=== PATIENT | female | born 1970 | race Caucasian/White ===

== ENCOUNTER → 2020-12-17 16:40 | Outpatient (CLI) | payer OTHER, SELFPAY ==
[2020-12-16 11:11] VITALS: BMI 29.8
--- NOTE | 2020-12-17 16:42 | BI_ITS ---
MAMMOGRAPHY - BILATERAL SCREENING REASON FOR EXAM: Female, 50 years old. Routine annual screening examination. PERTINENT HISTORY: Non-contributory. TECHNIQUE: Digital bilateral breast letitia (3D mammographic acquisition) in the CC and MLO projections. 2-D mediolateral oblique (MLO) and craniocaudad (CC) views of both breasts were obtained. CAD: Full Field Digital Mammography with Computer Added Detection was performed. COMPARISON: Comparison is made with prior outside examination dated 01/24/2018. FINDINGS: Breast Composition: There are scattered areas of fibroglandular density. There are no dominant masses or suspicious calcifications. No other significant abnormalities are identified. There has been no significant change since the prior study. BI/SCRN MAMM (CAD)W/LETITIA BILAT IMPRESSION: Stable bilateral screening mammogram. Yearly follow-up mammogram recommended. (A) ASSESSMENT CATEGORY: BIRADS Category 2: Benign. A letter regarding these results will be sent to the patient by the facility within 30 days. Approximately 10% of breast cancers are not detected by mammography. A normal mammogram should not delay biopsy of a clinically suspicious abnormality. [id number] Electronically Signed: Skyler Dunn MD at 13:04 EDT , Service support ,
== END ==
PROVIDERS: Referring Provider Student in an Organized Health Care Education/Training Program; Visit Provider Student in an Organized Health Care Education/Training Program
DX: Z12.31 Encounter for screening mammogram for malignant neoplasm of breast (principal)
CPT/HCPCS: 77063; 77067

== ENCOUNTER → 2021-03-13 11:25 | Outpatient (CLI) | payer OTHER, SELFPAY ==
[2021-03-13 12:48] LABS: T4 Free Direct 0.91 ng/dL (0.76-1.46); Thyroid Stim Hormone (TSH) 0.77 uIU/mL (0.358-3.74)
== END ==
PROVIDERS: Referring Provider Internal Medicine Endocrinology, Diabetes & Metabolism; Visit Provider Internal Medicine Endocrinology, Diabetes & Metabolism
DX: E05.00 Thyrotoxicosis with diffuse goiter without thyrotoxic crisis or storm (principal)
CPT/HCPCS: 36415; 84439; 84443

== ENCOUNTER → 2021-09-07 12:21 | Outpatient (CLI) | payer OTHER, SELFPAY ==
[2021-09-07 14:24] LABS: T4 Free Direct 1.48 ng/dL (0.76-1.46); Thyroid Stim Hormone (TSH) 0.03 uIU/mL (0.358-3.74)
== END ==
PROVIDERS: Visit Provider Internal Medicine Endocrinology, Diabetes & Metabolism
DX: E05.90 Thyrotoxicosis, unspecified without thyrotoxic crisis or storm (principal)
CPT/HCPCS: 36415; 84439; 84443

== ENCOUNTER 2021-10-30 10:32 | Outpatient (CLI) | payer OTHER, SELFPAY ==
[2021-10-30 12:45] LABS: T4 Free Direct 0.95 ng/dL (0.76-1.46); Thyroid Stim Hormone (TSH) 0.23 uIU/mL (0.358-3.74)
== END 2021-10-30 23:59 | disposition short-term general hospital (02) ==
LOC: LAB 10:34
PROVIDERS: PCP Family Medicine; Visit Provider Internal Medicine Endocrinology, Diabetes & Metabolism
DX: E05.90 Thyrotoxicosis, unspecified without thyrotoxic crisis or storm (principal)
CPT/HCPCS: 36415; 84439; 84443

== ENCOUNTER 2021-12-25 10:13 | Outpatient (CLI) | payer OTHER, SELFPAY ==
[2021-12-25 11:45] LABS: T4 Free Direct 0.92 ng/dL (0.76-1.46); Thyroid Stim Hormone (TSH) 0.54 uIU/mL (0.358-3.74)
== END 2021-12-25 23:59 | disposition home or self-care (01) ==
PROVIDERS: PCP Family Medicine; Referring Provider Internal Medicine Endocrinology, Diabetes & Metabolism; Visit Provider Internal Medicine Endocrinology, Diabetes & Metabolism
DX: E05.90 Thyrotoxicosis, unspecified without thyrotoxic crisis or storm (principal)
CPT/HCPCS: 36415; 84439; 84443

== ENCOUNTER → 2022-11-25 | Outpatient (CLI) | payer OTHER, SELFPAY ==
[2022-11-25 09:43] LABS: Hematocrit 39.5 % (37-47); Mean Corp Hgb Conc 32.9 g/dL (32-36); Mean Corpuscular Hgb 29.2 pg (27.0-32.0); Mean Corpuscular Volume 88.8 fL (81-99); Mean Platelet Vol. 8.9 fl (6.2-12.0); Platelet Count 230 K/mm3 (150-450); RBC Distribution Width SD 38.5 fl (35.1-43.9); Red Blood Count 4.45 M/mm3 (4.2-5.4); White Blood Count 3.6 K/mm3 (4.4-11.0)
[2022-11-25 10:16] LABS: AST(SGOT) 17 U/L (15-37); Alanine Aminotransfer ALT/SGPT 29 U/L (13-56); Albumin, Serum 3.8 g/dL (3.2-5.0); Alkaline Phosphatase 89 U/L (45-117); Anion Gap 5 (5-15); BUN 12 mg/dL (7-18); BUN/Creat Ratio 11.9 RATIO (10-20); Calcium,Total 9.4 mg/dL (8.5-10.1); Chloride 110 mmol/L (98-107); Creatinine, Serum 1.01 mg/dL (0.55-1.02); EST Glomerular Filtration Rate 61 mL/min (>60); Est Glom Filt Rate - Afr Amer 74 mL/min (>60); Free T3 3.2 pg/mL (2.18-3.98); Globulin 3.8 g/dL (2.2-4.2); Glucose 113 mg/dL (74-106); Protein, Total 7.6 g/dL (6.4-8.2); Sodium Level 143 mmol/L (136-145); T4 Free Direct 1.02 ng/dL (0.76-1.46); Thyroid Stim Hormone (TSH) 0.04 uIU/mL (0.358-3.74)
== END | disposition home or self-care (01) ==
LOC: LAB 09:17
PROVIDERS: PCP Family Medicine; Visit Provider Nurse Practitioner Adult Health
DX: E05.00 Thyrotoxicosis with diffuse goiter without thyrotoxic crisis or storm (principal)
CPT/HCPCS: 36415; 80053; 84439; 84443; 84481; 85027

== ENCOUNTER → 2023-01-09 | Outpatient (CLI) | payer OTHER, SELFPAY ==
--- NOTE | 2023-01-09 16:00 | BI_ITS ---
MAMMOGRAPHY - BILATERAL SCREENING REASON FOR EXAM: Female, 52 years old. Routine annual screening examination. PERTINENT HISTORY: Non-contributory. TECHNIQUE: Digital bilateral breast letitia (3D mammographic acquisition) in the CC and MLO projections. 2-D mediolateral oblique (MLO) and craniocaudad (CC) views of both breasts were obtained. CAD: Full Field Digital Mammography with Computer Added Detection was performed. COMPARISON: Comparison is made with prior study of December 17, 2020. FINDINGS: Breast Composition: There are scattered areas of fibroglandular density. There are no dominant masses or suspicious calcifications. No other significant abnormalities are identified. There has been no significant change since the prior study. BI/SCRN MAMM (CAD)W/LETITIA BILAT IMPRESSION: Stable bilateral screening mammogram. Yearly follow-up mammogram recommended. (A) ASSESSMENT CATEGORY: BIRADS Category 1: Negative. A letter regarding these results will be sent to the patient by the facility within 30 days. Approximately 10% of breast cancers are not detected by mammography. A normal mammogram should not delay biopsy of a clinically suspicious abnormality. [id number] Electronically Signed: Skyler Dunn MD at 8:20 EDT ,
[2023-01-09 17:07] LABS: Hematocrit 40.2 % (37-47); Hemoglobin 13.4 g/dL (12.0-15.0); Mean Corp Hgb Conc 33.3 g/dL (32-36); Mean Corpuscular Hgb 29.2 pg (27.0-32.0); Mean Corpuscular Volume 87.6 fL (81-99); Mean Platelet Vol. 9.6 fl (6.2-12.0); Platelet Count 249 K/mm3 (150-450); RBC Distribution Width SD 38.5 fl (35.1-43.9); Red Blood Count 4.59 M/mm3 (4.2-5.4); White Blood Count 5.9 K/mm3 (4.4-11.0)
[2023-01-09 17:56] LABS: T4 Free Direct 0.98 ng/dL (0.76-1.46)
== END | disposition home or self-care (01) ==
PROVIDERS: Nurse Practitioner Adult Health; PCP Family Medicine; Referring Provider Student in an Organized Health Care Education/Training Program; Visit Provider Student in an Organized Health Care Education/Training Program
DX: Z12.31 Encounter for screening mammogram for malignant neoplasm of breast (principal); E05.00 Thyrotoxicosis with diffuse goiter without thyrotoxic crisis or storm
CPT/HCPCS: 36415; 77063; 77067; 84439; 84443; 84481; 85027

== ENCOUNTER → 2023-06-08 | Outpatient (CLI) | payer OTHER, SELFPAY ==
[2023-06-08 17:15] LABS: Hematocrit 41.4 % (37-47); Hemoglobin 13.7 g/dL (12.0-15.0); Mean Corp Hgb Conc 33.1 g/dL (32-36); Mean Corpuscular Hgb 29.8 pg (27.0-32.0); Mean Platelet Vol. 9.2 fl (6.2-12.0); Platelet Count 247 K/mm3 (150-450); RBC Distribution Width CV 11.8 % (11.6-14.6); RBC Distribution Width SD 37.9 fl (35.1-43.9); White Blood Count 4.7 K/mm3 (4.4-11.0)
[2023-06-08 17:42] LABS: AST(SGOT) 15 U/L (15-37); Alanine Aminotransfer ALT/SGPT 35 U/L (13-56); Free T3 2.9 pg/mL (2.18-3.98); T4 Free Direct 0.89 ng/dL (0.76-1.46); Thyroid Stim Hormone (TSH) 2.22 uIU/mL (0.358-3.74)
== END | disposition home or self-care (01) ==
LOC: LAB 16:58
PROVIDERS: PCP Family Medicine; Referring Provider Nurse Practitioner Adult Health; Visit Provider Nurse Practitioner Adult Health
DX: E05.00 Thyrotoxicosis with diffuse goiter without thyrotoxic crisis or storm (principal)
CPT/HCPCS: 36415; 84439; 84443; 84450; 84460; 84481; 85027

== ENCOUNTER 2023-07-13 12:48 | Outpatient (CLI) | payer OTHER, SELFPAY ==
--- NOTE | 2023-07-13 12:54 | CT_ITS ---
STUDY: CT CHEST WITHOUT CONTRAST REASON FOR EXAM: Female, 52 years old. Family history of heart disease. OVER READ only RADIATION DOSAGE (If Supplied By Facility): CTDIvol = ( 12.19 ) mGy, DLP = ( 243.79 ) mGycm TECHNIQUE: Transaxial imaging was performed without the administration of intravenous contrast material. Individualized dose optimization techniques were used for this CT. COMPARISON: No relevant priors. FINDINGS: CHEST The lungs are normal. There is no demonstrated pleural abnormality. Normal heart and pericardium. Normal mediastinum. Normal hilar regions. Normal unenhanced pulmonary arteries. Normal aorta arch and descending thoracic aorta. Normal osseous structures. There is no demonstrated abnormality of the visualized upper abdomen. CT/Limited Chest CT Cardiac Only IMPRESSION: Normal unenhanced CT chest T abdomen examination. Electronically Signed: Skyler Dunn MD at 13:50 EDT ,
--- NOTE | 2023-07-13 17:51 | CA.SCORE ---
Calcium Scoring Date of Study:: 07/13/23 Indications Indications: Family history Coronary Calcium Scoring: High-resolution Computed Tomographic imaging of the chest was performed on [07/13/23 ], with particular attention paid to the coronary arteries. Images from the examination were analyzed for the presence and extent of coronary artery calcification , using coronary calcium quantification software. The patient tolerated the procedure well and there were no complications. The results of the coronary calcification analysis are provided below. Findings Coronary Artery Left Main (LM): 0 Left Anterior Descending (LAD): 0 Left Circumflex (LCX): 0 Right Coronary Artery (RCA): 0 Total Agatston Score: 0 Percentile Rankin% Calcium Scoring Interpretation: Different methods to categorize the overall amount of coronary plaque. Overall amount CAC SIS Visual of coronary plaque P1 Mild -100 <2 1-2 vessels with mild amount of plaque P2 Moderate 101-300 3-4 1-2 vessels with moderate amount, 3 vessels with mild amount of plaque P3 Severe 301-999 5-7 3 vessels with moderate amount, 1 vessel with severe amount of plaque P4 Extensive >1000 >8 2-3 vessels with severe amount of plaque Conclusion: No significant atherosclerotic plaque disease noted.
== END 2023-07-13 23:59 | disposition home or self-care (01) ==
LOC: CT 12:52
PROVIDERS: PCP Family Medicine; Referring Provider Family Medicine; Visit Provider Family Medicine
DX: E05.00 Thyrotoxicosis with diffuse goiter without thyrotoxic crisis or storm (principal); Z82.49 Family history of ischemic heart disease and other diseases of the circulatory system
CPT/HCPCS: 75571; 76380

== ENCOUNTER → 2023-07-15 | Outpatient (CLI) | payer OTHER, SELFPAY ==
[2023-07-15 11:43] LABS: T4 Free Direct 0.74 ng/dL (0.76-1.46); Thyroid Stim Hormone (TSH) 3.66 uIU/mL (0.358-3.74)
== END | disposition home or self-care (01) ==
LOC: LAB 10:15
PROVIDERS: PCP Family Medicine; Visit Provider Internal Medicine Endocrinology, Diabetes & Metabolism
DX: E05.90 Thyrotoxicosis, unspecified without thyrotoxic crisis or storm (principal)
CPT/HCPCS: 36415; 84439; 84443

== ENCOUNTER → 2023-10-14 | Outpatient (CLI) | payer OTHER, SELFPAY ==
--- OUTSIDE RECORDS SUMMARY | 2023-10-14 10:54 | XMS RPT_ITS | CCD ---
Author Name Unknown Address [address] [place] [address] Organization [facility] Care Team Providers Care Management Rep Name Role Phone Unavailable Primary Care Provider LEONIDAS Brooks Attending LISSETH Gustafson Attending Unavailable Medications Completed/Discontinued Medications Medication Drug Class(es) Dates Sig (Normalized) Sig (Original) methIMAzole 5 mg oral tablet (10 sources) Thyroid Hormone Synthesis Inhibitor Start: 12-01-2022 take 1.5 tablets by mouth once daily methIMAzole (TAPAZOLE) 5 mg tablet Indications: Graves disease Take 1.5 tablets by mouth once daily. 135 tablet 1 12/01/2022 Active Problems Active Problems Problem Classification Problem Date Documented Da te Episodic/Chronic Thyroid disorders (11 sources) Graves' disease; Translations: [Thyrotoxicosis with diffuse goiter without thyrotoxic crisis or storm] Onset: 02-21-2016 09-07-2021 Chronic Past or Other Problems Problem Classification Problem Date Documented Da te Episodic/Chronic Other circulatory disease (9 sources) Elevated blood-pressure reading without diagnosis of hypertension; Translations: [Elevated blood-pressure reading, without diagnosis of hypertension] Onset: 02-17-2019 02-17-2019 Episodic Results Test Name Value Interpretation Reference Range Facil ity Encounters Encounter Date Encounter Type Care Provider Facility Start: 10-04-2023 End: 10-04-2023 ambulatory LEONIDAS STARK Facility:[facility] Start: 07-28-2023 ambulatory Leonidas han MD Work Phone: Endocrinology Procedures Date Procedure Procedure Detail Performing Clinician Start: 06-08-2023 ALT/SGPT BLOOD (EU,FV,HL,CARRIE,MM,SP) [facility] Provider Start: 06-08-2023 AST/SGOT BLOOD (EU,FV,HL,CARRIE,MM,SP) [facility] Provider Start: 06-08-2023 THYROID PANEL - EXTERNAL [facility] Provider Start: 01-09-2023 T4/THYROXINE BLOOD [facility] Provider Start: 01-09-2023 Thyrotropin [Units/v olume] in Serum or Plasma [facility] Provider Start: 01-24-2018 Mammography Lisseth trent ELECTRIC MOTOR REPAIRMAN.MARVIN Work Phone: Plan of Treatment Date Care Activity Detail Author Start: 11-25-2025 DIABETES SCREEN DIABETES SCREEN [facility] Start: 11-25-2025 Diabetes Screening Diabetes Screenin g [facility] Start: 06-09-2023 Covid-19 Vaccine () Covid-19 Vaccine () [facility] Start: 06-09-2023 Influenza vaccination C [facility] Start: 03-15-2023 End: 05-15-2023 Thyrotropin [Units/volume] in Serum or Plasma TSH BLD Lab Routine Graves disease Expected: 03/15/2023 (Approximate), Expires: 05/15/2023 [facility] Work Phone: Immunizations Immunization Date Immunization Notes Care Provider [facility] 08-21-2022 influenza virus vaccine, unspecified formulation Leonidas Stark MD Work Phone: [facility] 09-15-2021 influenza, injectabl e, quadrivalent, contains preservative Lisseth Duarte ELECTRIC MOTOR REPAIRMAN.FOOD SERVICE LEAD Work Phone: [facility] Payers Date Payer Category Payer Unknown [facility] [employer] [id number] 2022-Present [phone] [address] [place] [address] PPO [id number] 2022 Unknown [id number] Social History Date Type Detail Facility Start: 08-04-2011 Tobacco smoking stat us ARIS Never smoked tobacco [facility] Work Phone: Start: 08-04-2011 Tobacco use and exposure Smokeless tobacco non-user [facility] Work Phone: Start: 11-15-2022 Alcohol intake Current non-dr tile trimmer of alcohol (finding) [facility] Start: 1970 Sex Assigned At Not on file C [facility] Start: 11-15-2022 History of Social function [facility] Start: 11-15-2022 Tobacco use panel [facility] National Score (1-100), lower number is lower risk 53 [facility] Clinical Notes 11-16-2012 to 10-04-2023 Telephone Encounter - Leonidas Stark MD - 07/18/2023 11:05 AM EDTTelephone Encounter - Razia Blount MA - 07/17/2023 2:48 PM EDT Note Date & Type Note Facility 10-04-2023 Note HNO ID: [id number] Author: Leonidas Stark MD Service: ? Author Type: Physician Type: Progress Notes Filed: 10/04/2023 9:47 AM Note Text: Follow-up 53 year-old female with history of Graves disease which had recurred despite [id number] hypothyroidism. Also has had elevated blood pressure without diagnosis of hypertension in the past. Radioiodine treatment was in 2009. She had been euthyroid again in 2011 and 2012, then TSH became suppressed again despite lower and lower levothyroxine doses. Says is exercising, feeling well. Says BP checks have been fine. No periods. Restarted methimazole in 04/2020. Current Outpatient Medications on File Prior to Visit Medication Sig methIMAzole (TAPAZOLE) 5 mg tablet TAKE 1.5 TABLETS BY MOUTH EVERY DAY ALLERGIES No Known Allergies Review of systems: Patient notes no weight changes, fever, fatigue, weakness, change in balance or sensation, visual problems, hearing changes, dizziness, trouble swallowing, nasal difficulties, shortness of breath, chest pain, change in exertional tolerance, foot or leg problems, skin lesions, abdominal pain, diarrhea, constipation, urinary problems, incontinence, back pain, joint pains, anxiety, depression, insomnia, menstrual difficulties, breast lesions/pain/mass. Remainder of review of systems was unremarkable. BP 130/85 Pulse 78 Resp 16 Ht 169.1 cm (5' 6.58 ) Wt 82 kg (180 lb 12.4 oz) LMP 12/07/2018 (Within Weeks) SpO2 98% BMI 28.68 kg/m? General appearance: Well-appearing, overweight (BMI greater than 25) female, alert, in no acute distress, well-hydrated, well nourished. Weight down 2 pounds since 11/2022. BP near normal, pulse regular. Skin: Skin color, texture, turgor normal, no suspicious rashes or lesions Head: normocephalic, no masses, lesions, tenderness or abnormalities Eyes: Anicteric sclera. Pupils are equally round. Extraocular movements are intact. Ears: not examined Nose/Sinuses: Nares normal. No drainage or sinus tenderness. Oropharynx: Lips, mucosa, and tongue normal, teeth and gums not examined. Neck: Supple, no adenopathy; no palpable thyroid enlargement. Lungs: Breathing unlabored. Heart: RRR. No ectopy Abdomen: deferred Extremities: No deformities, edema, skin discoloration, clubbing or cyanosis. Good capillary refill. Musculoskeletal: Spine range of motion not tested. Muscular strength intact, No joint swelling, deformity, or tenderness Peripheral pulses: Normal Neuro: Gait normal. Sensation grossly intact. Latest Reference Range AND Units 07/15/23 00:00 Free T4 0.8 - 1.5 ng/dL 0.7 ! (E) TSH 0.358 - 3.74 IU/ml 3.66 (E) !: Data is abnormal (E): External lab result IMPRESSION: Graves disease - check for remission, stop methimazole. Check TFTs again in 7-10 days Elevated blood pressure without diagnosis of hypertension - check BP in the community, stressed goal BP less than 130/80 mm Hg. PLAN: Stop methimazole. Check BP in the community, stressed goal BP less than 130/80 mm Hg. Continue weight loss efforts Check TSH, free T4 at [facility] in 7-10 days - will call with results See me again in 12 months Leonidas Stark MD I spent a total of 30 minutes on the date of service which included preparing to see the patient, [id number] patient care, completing clinical documentation, performing a medically appropriate examination, counseling and educating the patient/family/caregiver and ordering medications, tests, or procedures. [facility] 07-18-2023 Miscellaneous Notes Formattin g of this note might be different from the original. Reviewed. OUTSIDE LAB REPORT on desk for review ENTRY DATE: 07/17/2023 Patient: Neris Morton [facility]#: [id number] Age: [age] year old documented in this encounter [facility] 07-17-2023 Note HNO ID: [id number] Author: Razia Blount MA Service: ? Author Type: Branch Operations Manager Type: Progress Notes Filed: 07/17/2023 2:48 PM Note Text: [facility] faxed labs tsh and t4- entered into [employer]- fwd to provider [facility] 06-14-2023 Miscellaneous Notes Formattin g of this note might be different from the original. Reviewed. MC message sent to patient Received outside lab results from [facility]. Placed in Lisseth Duarte's in box for review. In epic. documented in this encounter [facility] 06-05-2023 Miscellaneous Notes Formattin g of this note might be different from the original. Please review. documented in this encounter [facility] 03-28-2023 Miscellaneous Notes Formattin g of this note might be different from the original. Faxed last two office notes to Nabila Bahena [facility] documented in this encounter [facility] 01-13-2023 Miscellaneous Notes Formattin g of this note might be different from the original. Reviewed. MC message sent to patient. Thank you Received lab results from [facility]. Entered into [facility]. Placed on docs desk for review. Please advise, thanks. documented in this encounter [facility] 12-02-2022 Miscellaneous Notes Formattin g of this note might be different from the original. MAILED TO PATIENT CLOSED Labs reviewed. [employer] message sent to patient Please mail her new lab orders. Thank you Received outside lab results from [facility]. Placed in [employer] in box for review. documented in this encounter [facility] 11-15-2022 Note HNO ID: [id number] Author: Lisseth Duarte APRN.MARVIN Service: ? Author Type: Nurse Practitioner Type: Progress Notes Filed: 11/15/2022 1:57 PM Note Text: Reason for Consultation: Grave's Disease Referring Physician: SELF HISTORY OF PRESENT ILLNESS; Ms. Morton is a 52 year old female presenting for follow up regarding Grave's Disease . She was initially diagnosed with a thyroid disorder [address] Stark; [place] 08/27/2021 History of Graves disease and had GILLIAM 131 treatment in 2009 and became hypothyroid. However in [id number] she developed a suppressed TSH and need up stopping levothyroxine and is now back on methimazole as of 04/2020. Taking methimazole 5 mg daily Reports consistent use. Overall feeling well. Denies endocrine concern Severity, modifying factors, context and associated signs and symptoms are as follows: Thyroid pain: no Mass effect:denies Energy: stable and OK Sleep: Normal sleep pattern Temperature Intolerance: None CREDIT CARD CLERK: Menopause GI: denies loose stools, frequent stools or constipation Weight: remained stable Eyes: Dryness in left with lens replacement. Memory: Good Skin: denies changes PAST MEDICAL HISTORY Diagnosis Date Abnormal uterine bleeding 11/16/2012 Hypothyroidism Postablative hypothyroidism 07/26/201001/2016 - remains off levothyroxine (stopped 12/07/2015). PAST SURGICAL HISTORY Procedure Laterality Date LIG/TRNSXJ FLP TUBE ABDL/VAG APPR UNI/BI Tubal ligation TONSILLECTOMY PRIMARY/SECONDARY Tonsillectomy FAMILY HISTORY Problem Relation Age of Onset Diabetes Father Diabetes Paternal Aunt Heart Maternal Grandmother Prostate Cancer Maternal Grandfather Diabetes Son Social History Tobacco Use Smoking status: Never Smokeless tobacco: Never Substance Use Topics Alcohol use: No Drug use: No Current Outpatient Medications Medication Sig Dispense Refill methIMAzole (TAPAZOLE) 5 mg tablet Take 1 tablet by mouth once daily. 90 tablet 3 No current facility-administered medications for this visit. Allergies As of Date: 11/15/2022 (No Known Allergies) Fully Assessed 11/15/2022 REVIEW OF SYSTEMS: Answers submitted by the patient for this visit: Endocrine Review of Systems (Submitted on 11/14/2022) Fatigue: No Night Sweats: No Skin Color Changes: No Post-Nasal Drip: No Thyroid Pain (lower neck): No Trouble Swallowing: No Vision Disturbance: No Chest Pain: No Leg Swelling: No Blood Clots?: No Difficulty Breathing?: No Heartburn: No Nausea: No Vomiting?: No Diarrhea: No Constipation: No Abdominal Pain: No Bone Pain?: No Muscle Aches: No Muscle Weakness: No Joint Pain or Stiffness: No Headaches: No Dizziness: No Numbness?: No Urgency to Urinate?: No Increased Urination?: No Are your menstrual cycles regular?: No Are your menstrual cycles irregular?: No Have your menstrual cycles stopped?: Yes Flushing?: No Hot Flashes?: Yes Increased Thirst: No Change in Body Hair?: No Cold Intolerance: No Heat Intolerance?: No PHYSICAL EXAM: BP 141/79 Pulse 70 Ht 167.6 cm (5' 6 ) Wt 82.8 kg (182 lb 9.6 oz) LMP 12/07/2018 (Within Weeks) SpO2 99% BMI 29.47 kg/m2 Physical Exam Constitutional: Appearance: Normal appearance. Neck: Thyroid: No thyroid mass, thyromegaly or thyroid tenderness. Cardiovascular: Rate and Rhythm: Normal rate and regular rhythm. Pulmonary: Effort: Pulmonary effort is normal. Breath sounds: Normal breath sounds. Skin: General: Skin is warm and dry. Neurological: Mental Status: She is alert and oriented to person, place, and time. Psychiatric: Mood and Affect: Mood normal. Behavior: Behavior normal. DATA: No components found for: TOTALT4 Free T4 Date Value Ref Range Status 10/08/2020 1.0 0.9 - 1.7 ng/dL Final No components found for: TOTALT3 TSH Date Value Ref Range Status 12/25/2021 0.54 0.2 - 5.6 IU/ml Final Free T3 Date Value Ref Range Status 06/23/2020 3.3 2.3 - 4.1 pg/mL Final Microsomal Antibody Date Value Ref Range Status 09/07/2009 182.4 (H) <5.0 IU/mL Final RADIOLOGY: US Thyroid was not done. ASSESSMENT: Ms. Morton is a 52 year old female presenting for follow up regarding Grave's Disease . RECOMMENDATIONS: (E05.00) Graves disease Comment: She has been euthyroid on the present dose of methimazole. Plan: methIMAzole (TAPAZOLE) 5 mg tablet, TSH BLD, T4 FREE/FREE THYROX, T3 FREE BLD, COMP METABOLIC PANEL, CBC Labs this week or next--order printed--using [employer]. Advised to contact me within a week of having labs done if she does not hear from me. Follow up in 6 months. Medical Decision Making: Level: 3 - Low Lisseth Duarte, MSN, ELECTRIC MOTOR REPAIRMAN, CNP-C, CDE Endocrinology [facility] Medical Office [facility]/[address], [address] [place] [address] Fax: [facility] documented as of this encounter (statuses as of 11/29/2022) [facility] History of Past illness Narrative* Problem Noted Date Resolved Date Abnormal uterine bleeding 11/16/20122013 Bulky or enlarged uterus 11/16/2012 014 Unspecified symptom associated with female genit al organs 10/29/2008 11/16/2012 Dyspareunia 10/29/2008 09/27/2015 documented as of this encounter (statuses as of 12/02/2022) [facility] History of Past illness Narrative* Problem Noted Date Resolved Date Abnormal uterine bleeding 11/16/20122013 Bulky or enlarged uterus 11/16/2012 014 Unspecified symptom associated with female genit al organs 10/29/2008 11/16/2012 Dyspareunia 10/29/2008 09/27/2015 documented as of this encounter (statuses as of 01/14/2023) [facility] History of Past illness Narrative* Problem Noted Date Resolved Date Abnormal uterine bleeding 11/16/20122013 Bulky or enlarged uterus 11/16/2012 014 Unspecified symptom associated with female genit al organs 10/29/2008 11/16/2012 Dyspareunia 10/29/2008 09/27/2015 documented as of this encounter (statuses as of 03/29/2023) [facility] History of Past illness Narrative* Problem Noted Date Diagnosed Date Resolved Date Abnormal uterine bleeding 11/16/2012 Bulky or enlarged uterus 11/16/2012 Unspecified symptom associat ed with female genital organs 10/29/2008 11/16/2012 Dyspareunia 10/29/2008 09/27/2015 documented as of this encounter (statuses as of 06/05/2023) [facility] History of Past illness Narrative* Problem Noted Date Diagnosed Date Resolved Date Abnormal uterine bleeding 11/16/2012 Bulky or enlarged uterus 11/16/2012 Unspecified symptom associat ed with female genital organs 10/29/2008 11/16/2012 Dyspareunia 10/29/2008 09/27/2015 documented as of this encounter (statuses as of 06/14/2023) [facility] History of Past illness Narrative* Problem Noted Date Diagnosed Date Resolved Date Abnormal uterine bleeding 11/16/2012 Bulky or enlarged uterus 11/16/2012 Unspecified symptom associat ed with female genital organs 10/29/2008 11/16/2012 Dyspareunia 10/29/2008 09/27/2015 documented as of this encounter (statuses as of 06/15/2023) [facility] History of Past illness Narrative* Problem Noted Date Diagnosed Date Resolved Date Abnormal uterine bleeding 11/16/2012 Bulky or enlarged uterus 11/16/2012 Unspecified symptom associat ed with female genital organs 10/29/2008 11/16/2012 Dyspareunia 10/29/2008 09/27/2015 documented as of this encounter (statuses as of 07/18/2023) [facility] History of Past illness Narrative* Problem Noted Date Diagnosed Date Resolved Date Abnormal uterine bleeding 11/16/2012 Bulky or enlarged uterus 11/16/2012 Unspecified symptom associat ed with female genital organs 10/29/2008 11/16/2012 Dyspareunia 10/29/2008 09/27/2015 documented as of this encounter (statuses as of 07/29/2023) [facility] Diagnosis 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 [facility] this [facility] Diagnosis Graves disease- Primary Toxic diffuse goiter without mention of thyrotoxic crisis or storm documented in this encounter [facility] Summary Purpose Family History No Family History Records FoundNo Family History Records Found Advance Directives No Advanced Directives Records FoundNo Advanced Directives Records Found Additional Source Comments INFORMATION SOURCE (unrecogn ized section and content) DATE CREATED AUTHOR AUTHOR'S ORGANIZ ATION 10/05/2023 [facility] Source Comments (unrecognize d section and content) In the event this informatio n is protected by the Federal Confidentiality of Alcohol and Drug Abuse Patient Records regulations: The Federal rules restrict any use of the information to criminally investigate or prosecute any alcohol or drug abuse patient.[facility] the event this information is protected by the Federal Confidentiality of Alcohol and Drug Abuse Patient Records regulations: The Federal rules restrict any use of the information to criminally investigate or prosecute any alcohol or drug abuse patient.[facility] the event this information is protected by the Federal Confidentiality of Alcohol and Drug Abuse Patient Records regulations: The Federal rules restrict any use of the information to criminally investigate or prosecute any alcohol or drug abuse patient.[facility] the event this information is protected by the Federal Confidentiality of Alcohol and Drug Abuse Patient Records regulations: The Federal rules restrict any use of the information to criminally investigate or prosecute any alcohol or drug abuse patient.[facility] the event this information is protected by the Federal Confidentiality of Alcohol and Drug Abuse Patient Records regulations: The Federal rules restrict any use of the information to criminally investigate or prosecute any alcohol or drug abuse patient.[facility] the event this information is protected by the Federal Confidentiality of Alcohol and Drug Abuse Patient Records regulations: The Federal rules restrict any use of the information to criminally investigate or prosecute any alcohol or drug abuse patient.[facility] the event this information is protected by the Federal Confidentiality of Alcohol and Drug Abuse Patient Records regulations: The Federal rules restrict any use of the information to criminally investigate or prosecute any alcohol or drug abuse patient.[facility] the event this information is protected by the Federal Confidentiality of Alcohol and Drug Abuse Patient Records regulations: The Federal rules restrict any use of the information to criminally investigate or prosecute any alcohol or drug abuse patient.[facility] the event this information is protected by the Federal Confidentiality of Alcohol and Drug Abuse Patient Records regulations: The Federal rules restrict any use of the information to criminally investigate or prosecute any alcohol or drug abuse patient.[facility] Reason for Visit (unrecogniz ed section and content) Reason Comments Outside Lab Results [facility] Reason Comments Outside Lab Results [facility]- t sh and t4 FOR RECORDS PERTAINING TO PATIENTS WHO ARE OR HAVE BEEN ENROLLED IN A CHEMICAL DEPENDENCY/SUBSTANCEABUSE PROGRAM, SOME INFORMATION MAY BE OMITTED. This clinical summary was aggregated from multiple sources. Caution should be exercised in using it in the provision of clinical care. This summary normalizes information from multiple sources, and as a consequence, information in this document may materially change the coding, format and clinical context of patient data. In addition, data may be omitted in some cases. CLINICAL DECISIONS SHOULD BE BASED ON THE PRIMARY CLINICAL RECORDS. [employer] provides no warranty or guarantee of the accuracy or completeness of information in this document.
[2023-10-14 12:51] LABS: T4 Free Direct 1.35 ng/dL (0.76-1.46); Thyroid Stim Hormone (TSH) 0.03 uIU/mL (0.358-3.74)
== END | disposition home or self-care (01) ==
LOC: LAB 10:53
PROVIDERS: PCP Family Medicine; Referring Provider Internal Medicine Endocrinology, Diabetes & Metabolism; Visit Provider Internal Medicine Endocrinology, Diabetes & Metabolism
DX: E05.90 Thyrotoxicosis, unspecified without thyrotoxic crisis or storm (principal)
CPT/HCPCS: 36415; 84439; 84443

== ENCOUNTER → 2023-11-16 | Outpatient (CLI) | payer OTHER, SELFPAY ==
[2023-11-16 17:29] LABS: T4 Free Direct 0.92 ng/dL (0.76-1.46); Thyroid Stim Hormone (TSH) 0.18 uIU/mL (0.358-3.74)
== END | disposition home or self-care (01) ==
LOC: LAB 15:02
PROVIDERS: PCP Family Medicine; Referring Provider Internal Medicine Endocrinology, Diabetes & Metabolism; Visit Provider Internal Medicine Endocrinology, Diabetes & Metabolism
DX: E05.00 Thyrotoxicosis with diffuse goiter without thyrotoxic crisis or storm (principal)
CPT/HCPCS: 36415; 84439; 84443

== ENCOUNTER → 2023-12-09 | Outpatient (CLI) | payer OTHER, SELFPAY ==
[2023-12-09 12:25] LABS: Thyroid Stim Hormone (TSH) 2.58 uIU/mL (0.358-3.74)
== END | disposition home or self-care (01) ==
LOC: LAB 10:51
PROVIDERS: PCP Family Medicine; Referring Provider Internal Medicine Endocrinology, Diabetes & Metabolism; Visit Provider Internal Medicine Endocrinology, Diabetes & Metabolism
DX: E05.90 Thyrotoxicosis, unspecified without thyrotoxic crisis or storm (principal)
CPT/HCPCS: 36415; 84439; 84443

== ENCOUNTER → 2024-01-06 | Outpatient (CLI) | payer OTHER, SELFPAY ==
[2024-01-06 12:37] LABS: T4 Free Direct 0.83 ng/dL (0.76-1.46); Thyroid Stim Hormone (TSH) 1.24 uIU/mL (0.358-3.74)
== END | disposition home or self-care (01) ==
LOC: LAB 11:21
PROVIDERS: PCP Family Medicine; Referring Provider Internal Medicine Endocrinology, Diabetes & Metabolism; Visit Provider Internal Medicine Endocrinology, Diabetes & Metabolism
DX: E05.90 Thyrotoxicosis, unspecified without thyrotoxic crisis or storm (principal)
CPT/HCPCS: 36415; 84439; 84443

== ENCOUNTER → 2024-08-12 | Outpatient (CLI) | payer OTHER, SELFPAY ==
[2024-08-12 18:29] LABS: AST(SGOT) 13 U/L (15-37); Alanine Aminotransfer ALT/SGPT 26 U/L (13-56); Albumin, Serum 3.6 g/dL (3.2-5.0); Alkaline Phosphatase 84 U/L (45-117); Anion Gap 4 (5-15); BUN 11 mg/dL (7-18); BUN/Creat Ratio 10.3 RATIO (10-20); Chloride 108 mmol/L (98-107); Creatinine, Serum 1.07 mg/dL (0.55-1.02); EST Glomerular Filtration Rate 57 mL/min (>60); Est Glom Filt Rate - Afr Amer 69 mL/min (>60); Globulin 3.6 g/dL (2.2-4.2); Glucose 93 mg/dL (74-106); Potassium 3.8 mmol/L (3.5-5.1); Protein, Total 7.2 g/dL (6.4-8.2); Sodium Level 142 mmol/L (136-145)
[2024-08-20 12:09] LABS: Aldosterone, Serum 1.5 ng/dL (0.0-30.0); Renin, Plasma 0.722 ng/mL/hr (0.167-5.380)
== END | disposition home or self-care (01) ==
LOC: LAB 16:58
PROVIDERS: Referring Provider Internal Medicine Endocrinology, Diabetes & Metabolism; Visit Provider Internal Medicine Endocrinology, Diabetes & Metabolism
DX: I10 Essential (primary) hypertension (principal); E05.90 Thyrotoxicosis, unspecified without thyrotoxic crisis or storm
CPT/HCPCS: 36415; 80053; 82088; 84244; 84439; 84443

== ENCOUNTER → 2024-12-25 | Outpatient (CLI) | payer OTHER, SELFPAY ==
--- NOTE | 2024-12-25 08:16 | BI_ITS ---
PROCEDURE: SCRN MAMM (CAD)W/LETITIA BILAT REASON FOR EXAM: F, Age 54 y/o , SCREENING. No family history of breast cancer. TECHNIQUE: Bilateral screening digital breast tomosynthesis with 2D and 3D images. Computer aided detection. COMPARISON: 01/09/2023 FINDINGS: There are scattered areas of fibroglandular density. No suspicious masses, areas of developing architectural distortion, or suspicious calcifications. BI/SCRN MAMM (CAD)W/LETITIA BILAT IMPRESSION: There is no mammographic evidence of malignancy BI-RADS 1: NEGATIVE. RECOMMEND ANNUAL MAMMOGRAPHIC SCREENING. Follow-up code: Routine Follow-up The patient will be notified of the results by letter. Reading Location: [id number]
== END | disposition home or self-care (01) ==
LOC: OPBI 08:13
PROVIDERS: Referring Provider Obstetrics & Gynecology; Visit Provider Obstetrics & Gynecology
DX: Z12.31 Encounter for screening mammogram for malignant neoplasm of breast (principal)
CPT/HCPCS: 77063; 77067

== ENCOUNTER → 2025-08-30 | Outpatient (CLI) | payer OTHER, SELFPAY ==
--- OUTSIDE RECORDS SUMMARY | 2025-08-30 11:04 | XMS RPT_ITS | CCD ---
Author Organization [facility] Care Team Providers Care Process Mold Technician Name Role Phone Unavailable Primary Care Provider UnavailDO Ewelina Dumont Primary Care Provider [phone] DO Ewelina Gómez Referring Provider DO Ewelina Gómez Other Provider Dr. Dallin Jhaveri Attending Provider Unavailable Primary Care Provider UnavailFLOR Swanson Attending Unavailable LEONIDAS STARK Attending UnavailEwelina Dumont Primary Care Unavailable Ewelina Gómez Referring Unavailable Tank Retana Attending Unavailable Milo Yadav Attending Unavailable Dallin Jhaveri Attending Unavailable Care Physician, No Primary Primary Care Unava ilable Leonidas Stark Attending Unavailable Leonidas Stark Referring Unavailable Flor Eason Attending Unavailable Flor Eason Referring Unavailable Care Physician, No Primary Primary Care Unava ilable Leonidas Stark Referring Unavailable Ewelina Gómez Primary Care Unavailable Leonidas Stark Attending Unavailable Tank Retana Attending Unavailable Ewelina Gómez Primary Care Unavailable Dallin Jhaveri Attending Unavailable Care Physician, No Primary Primary Care Provider Unavailable Andrew ALCALA, Dr. Hanna Attending Provider Dr. Flor Eason MD Referring Provider [phone] Medications Current Medications Medication Drug Class(es) Dates Sig (Normalized) Sig (Original) methIMAzole 5 mg oral tablet (20 sources) Thyroid Hormone Synthesis Inhibitor Start: 10-16-2023 End: 12-11-2023 take 1.5 tablets by mouth once daily methIMAzole (TAPAZOLE) 5 mg tablet Indications: Graves disease Take 1.5 tablets by mouth once daily. 135 tablet 3 10/16/2023 12/11/2023 Discontinued Start: 12-01-2022 take 1.5 tablets by mouth once daily methIMAzole (TAPAZOLE) 5 mg tablet Indications: Graves disease Take 1.5 tablets by mouth once daily. 135 tablet 1 12/01/2022 Active Start: 12-10-2020 End: 08-12-2024 take 1 tablet by mouth once daily methIMAzole (TAPAZOLE) 5 mg tablet Indications: Graves disease Take 1 tablet by mouth once daily. 90 tablet 3 08/12/2024 Active Comment on above: Take 1 tablet by dieter th once daily. Take 1.5 tablets by mouth once daily. predniSONE 10 mg oral tablet (8 sources) Start: 07-09-2024 take 4 tablets by mouth once daily, then take 3 tablets by mouth once daily, then take 2 tablets by mouth once daily, then take 1 tablet by mouth once daily Prednisone 10 mg tablet Active 0 PO DAILY July 09, 2024 12:00am 40 mg PO daily x 3 days, 30 mg PO daily x 3 days, 20 mg PO daily x 3 days, 10 mg PO daily x 3 days Start: 07-03-2022 End: 02-12-2024 Prednisone 10 mg tablet Disc ontinued 10 mg PO .COMPLEX July 03, 2022 12:00am February 12, 2024 3:05pm Take 4 pills for 3 days, 3 pills for 3 days, 2 pills for 3 days, take 1 pill for 3 days Completed/Discontinued Medications Medication Drug Class(es) Dates Sig (Normalized) Sig (Original) meloxicam 15 mg oral tablet (7 sources) Nonsteroidal Anti-inflammatory Drug Start: 12-17-2020 End: 07-03-2022 take 1 tablet by mouth once daily Meloxicam 15 mg tablet Discontinued 15 mg PO DAILY December 17, 2020 1:00am July 03, 2022 11:36am Stop all other NSAIDs. Problems Active Problems Problem Classification Problem Date Documented Date Episodic/Chronic Allergic reactions (7 sources) Contact dermatitis due to poison hero; Translations: [Allergic contact dermatitis due to plants, except food] 07-03-2022 Episodic Essential hypertension (1 source) Essential (primary) hypertension; Translations: [Essential (primary) hypertension] Onset: 08-30-2024 Chronic Immunizations and screening for infectious disease (3 sources) Patient encounter status; Translations: [Encounter for screening for human papillomavirus (HPV)] 12-18-2024 Episodic Osteoarthritis (2 sources) Primary osteoarthritis, left hand; Translations: [Osteoarthritis of finger joint of left hand] Onset: 02-12-2024 02-12-2024 Chronic Other connective tissue disease (1 source) Calcific tendinitis of right shoulder; Translations: [Calcific tendinitis of right shoulder] 06-20-2024 Episodic Other screening for suspected conditions (not mental disorders or infectious disease) (1 source) Encounter for screening mammogram for malignant neoplasm of breast; Translations: [Encounter for screening mammogram for malignant neoplasm of breast] Onset: 01-01-2025 Episodic Thyroid disorders (20 sources) Graves' disease; Translations: [Thyrotoxicosis with diffuse goiter without thyrotoxic crisis or storm] Onset: 02-21-2016 09-07-2021 Chronic Past or Other Problems Problem Classification Problem Date Documented Da te Episodic/Chronic Other circulatory disease (20 sources) Elevated blood-pressure reading without diagnosis of hypertension; Translations: [Elevated blood-pressure reading, without diagnosis of hypertension] Onset: 02-17-2019 02-17-2019 Episodic Other connective tissue disease (1 source) Calcific tendinitis of right shoulder; Translations: [Calcific tendinitis of right shoulder] Onset: 06-20-2024 Episodic Other female genital disorders (5 sources) Dyspareunia; Translations: [Dyspareunia] Onset: 10-29-2008 Resolved: 09-27-2015 09-27-2015 Chronic Other female genital disorders (5 sources) Abnormal uterine bleeding; Translations: [Abnormal uterine and vaginal bleeding, unspecified] Onset: 11-16-2012 Resolved: 02-19-2014 02-19-2014 Chronic Other female genital disorders (5 sources) Female genital organ symptoms; Translations: [Unspecified condition associated with female genital organs and menstrual cycle] Onset: 10-29-2008 Resolved: 11-16-2012 11-16-2012 Episodic Other female genital disorders (5 sources) Enlarged uterus; Translations: [Hypertrophy of uterus] Onset: 11-16-2012 Resolved: 02-19-2014 02-19-2014 Episodic Other non-traumatic joint disorders (2 sources) Pain in right shoulder; Translations: [Right shoulder pain] Onset: 06-20-2024 06-20-2024 Episodic Unclassified (2 sources) Patient encounter status 12-18-2024 Results Test Name Value Interpretation Reference Range Facility Breast imaging reportOrdered By: Rosastevan Keane on 12-25-2024 Study report [facility] Imaging Services [address] [place] [address] SCRN MAMM (CAD)W/LETITIA BILAT MR#: [id number] Acct: [id number] Name: NERIS MORTON Rep #: [id number] : 1970 F 54 From: Gavi Keane MD PCP: Care Physician,No Primary Status: REG CLI Study:SCRN MAMM (CAD)W/LETITIA BILAT Date of Exa m: 12/25/24 Exam# [id number] Ordering Dr: Flor Eason MD PROCEDURE: SCRN MAMM (CAD)W/LETITIA BILAT REASON FOR EXAM: F, Age 54 y/o , SCREENING. No family history of breast cancer. TECHNIQUE: Bilateral screening digital breast tomosynthesis with 2D and 3D images. Computeraided detection. COMPARISON: 01/09/2023 FINDINGS: There are scattered areas of fibroglandular density. No suspicious masses, areas of developing architectural distortion, or suspicious calcifications. BI/SCRN MAMM (CAD)W/LETITIA BILAT IMPRESSION: There is no mammographic evidence of malignancy BI-RADS 1: NEGATIVE. RECOMMEND ANNUAL MAMMOGRAPHIC SCREENING. Follow-up code: Routine Follow-up The patient will be notified of the results by letter. Reading Location: [facility] CC: Dr. Flor Eason MD; No Primary Care Physician ~ Insole Beveler: Signed [facility] SCRN MAMM (CAD)W/LETITIA BILATo n 12-25-2024 SCRN MAMM (CAD)W/LETITIA BILAT [facility] Imaging Services [address] [place] [address] SCRN MAMM (CAD)W/LETITIA BILAT MR#: [id number] Acct: [id number] Name: NERIS MORTONN Rep #: [id number] : 1970 F 54 From: Rosa Keane MD PCP: Care Physician,No Primary Status: REG CLI Study: SCRN MAMM (CAD)W/LETITIA BILAT Date of Exam: 12/07 07/03 Exam# [id number] Ordering Dr: Flor Eason MD PROCEDURE: SCRN MAMM (CAD)W/LETITIA BILAT REASON FOR EXAM: F, Age 54 y/o , SCREENING. No family history of breast cancer. TECHNIQUE: Bilateral screening digital breast tomosynthesis with 2D and 3D images. Computer aided detection. COMPARISON: 01/09/2023 FINDINGS: There are scattered areas of fibroglandular density. No suspicious masses, areas of developing architectural distortion, or suspicious calcifications. BI/SCRN MAMM (CAD)W/LETITIA BILAT IMPRESSION: There is no mammographic evidence of malignancy BI-RADS 1: NEGATIVE. RECOMMEND ANNUAL MAMMOGRAPHIC SCREENING. Follow-up code: Routine Follow-up The patient will be notified of the results by letter. Reading Location: [facility] CC: Dr. Flor Eason MD; No Primary Care Physician Insole Beveler: [facility] Office Visit (OBGYWM ) NERIS MORTON ([id number]) 1970 F Date Time Provider Department 12/18/24 2:40 PM FLOR EASON OBGYWM During your visit today, we recorded the following information about you: Blood pressure Weight Height 142/84 82.6 kg 1.676 m Flor Eason MD 12/18/2024 3:10 PM Signed Neris is a 54 year old who presents for an annual gynecologic exam without complaints. SOme wt gain. Stress Postmenopausal: LMP around age 49 HRT use: No. Still get period: No Menopause symptoms: Hot flashes- not disruptive Time with current partner: 34 years control frequency: Never HPV vaccine: No; Last pap smear: 2017 History of abnormal pap: No, all prior PAP smears have been normal Last mammogram: 2022 normal History of abnormal mammogram: No OB History Gravida4 Para3 Term3 Preterm0 AB1 Living3 SAB1 IAB0 Ectopic0 Multiple0 Live Births0 Peach Grower History LMP: 12/07/2018 (Within Weeks), Having periods Age at Menarche: Age at First : Age at Menopause: Peach Grower History Comments: Sexual Activity: Yes; Male Contraception: Tubal Ligation PAST MEDICAL HISTORY Diagnosis Date Abnormal uterine bleeding 11/16/2012 Hypothyroidism Postablative hypothyroidism 07/26/201001/2016 - remains off levothyroxine (stopped 12/07/2015). PAST SURGICAL HISTORY Procedure Laterality Date LIG/TRNSXJ FLP TUBE ABDL/VAG APPR UNI/BI Tubal ligation TONSILLECTOMY PRIMARY/SECONDARY Tonsillectomy FAMILY HISTORY Problem Relation Age of Onset Diabetes Father Heart Maternal Grandmother Prostate Cancer Maternal Grandfather Diabetes Son Diabetes Paternal Aunt SOCIAL HISTORY Social History Tobacco Use Smoking status: Never Smokeless tobacco: Never Vaping Use Vaping status: Never Used Substance Use Topics Alcohol use: No Drug use: No REVIEW OF SYSTEMS Abdomen: No abdominal pain, nausea, vomiting, diarrhea, or constipation. No bloating, early satiety, indigestion, or increased flatulence. Bladder: No dysuria, gross hematuria, urinary frequency, urinary urgency, or incontinence Breast: No breast lumps, nipple d/c, overlying skin changes, redness or skin retraction Allergies and current medication updated:Yes SENSITIVE EXAM: The sensitive examination was discussed with the Patient or Patient's Authorized Water Ski Assembler. As applicable, any other physician, advance practice provider, medical student, or other health professional student that will be observing or involved in the sensitive examination for educational or training purposes was discussed with the Patient or Authorized Water Ski Assembler. The Patient or Authorized Water Ski Assembler has agreed to proceed with the sensitive examination. (Sensitive examination includes inspection and/or palpation of the breasts, pelvis, prostate and anorectal regions). EXAM: BP 142/84 Ht 5' 6 (1.68m) Wt 182 lb (82.6kg) LMP 12/07/2018 BMI 29.39 kg/(m2). GENERAL: pleasant, female in no apparent distress HEENT: Normocephalic, atraumatic, mucus membranes moist, and no lesions NECK: Supple, full range of motion, no adenopathy, and thyroid normal DERMATOLOGY: Normal, without lesions, non-icteric, and non-hirsute BREAST: soft, non-tender, symmetric, no dominant mass, normal nipple-areolar complex, no lymphadenopathy, and no nipple discharge CHEST: Normal inspiratory effort ABDOMEN: soft, non-tender, and no masses PELVIC: external genitalia normal, normal Bartholin's glands, urethra, [place]'s glands, no vulvar lesions, no cervical lesions, good vaginal support, physiologic discharge present, normal appearing perineal body and perianal region BIMANUAL: uterus normal size, shape and consistency, no adnexal masses, and non-tender RECTOVAGINAL: deferred. NEURO: alert and oriented x3,exam grossly non-focal EXTREMITIES: normal ASSESSMENT/PLAN: 1) Health maintenance: Pap done with HPV. Mammogram ordered Colon cancer screening: plans cologard 2) Follow up one year or sooner as needed Flor Eason MD Allergies As of Date: 12/18/2024 (No Known Allergies) Date Reviewed: 12/18/2024 Reviewed by: Flor Eason MD - Fully Assessed Reason for Visit: Yearly Exam [187] Primary Visit Diagnosis:Encounter for gynecological examination (general) (routine) without abnormal findings [Z01.419] Other Visit Diagnoses:Encounter for screening for human papillomavirus (HPV) [Z11.51] Pap smear for cervical cancer screening [Z12.4] Encounter for screening mammogram for breast cancer [Z12.31] Order(s):RADHA SCREENING W LETITIA [[id number]] Order #: [id number] FUTURE PAP TEST [OSU0114] Order #: [id number] Prescriptions as of 12/18/2024 - methIMAzole (TAPAZOLE) 5 mg tablet Take 1 tablet by mouth once daily. Problem List As Of Date 12/18/2024 Noted Resolved Unspecified symptom associated with (more content not included)... Normal [facility] HIGH RISK HUMAN PAPILLOMA ERIC (HPV), PCR FOR DETECTION AND GENOTYPINGon 12-18-2024 HPV 16 Ag Ql (Unsp spec) Not detected Normal Not detected [facility] Comment on above: Order Comment: Speci men Type: FLUID SPECIMEN Ordering Facility: [facility] Address: [address] [place] [address] Performed By: #### H PVHRT #### [facility] CLIA [id number] [address] [place] [address] [place] HPV 18 Ag Ql (Unsp spec) Not detected Normal Not detected [facility] Comment on above: Order Comment: Speci men Type: FLUID SPECIMEN Ordering Facility: [facility] Address: [address] [place] [address] Performed By: #### H PVHRT #### [facility] CLIA [id number] [address] [place] [address] [place] HPV 31+33+35+39+45+51+52+ 56+58+59+66+68 DNA ELIA+probe Ql (Cvx) Not detected Normal Not detected [facility] Comment on above: Order Comment: Speci men Type: FLUID SPECIMEN Ordering Facility: [facility] Address: [address] [place] [address] Result Comment: High Risk HPV Other Type includes HPV types 31, 33, 35, 39, 45, 51, 52, 56, 58, 59, 66 and 68. Performed By: #### H PVHRT #### [facility] CLIA [id number] [address] [place] [address] [place] PAP TESTon 12-18-2024 ADEQUACY Satisfactory for interpretation. Normal [facility] Comment on above: Order Comment: Speci men Type: FLUID SPECIMEN Ordering Facility: [facility] Address: [address] [place] [address] Performed By: #### L [id number] #### [facility] CLIA [id number] [address] [place] [address] [place] CASE REPORT Normal [facility] Comment on above: Order Comment: Speci men Type: FLUID SPECIMEN Ordering Facility: [facility] Address: [address] [place] [address] Result Comment: Gyne cologic Cytology Report Case: [id number] Authorizing Provider: Flor Eason MD Collected: 12/18/2024 03:27 PM Ordering Location: OB/Gynecology Received: 12/18/2024 04:37 PM First Screen: Cisco, Juan, CT, ASCP Specimen: Pap Test, ThinPrep, Cervix Performed By: #### L [id number] #### [facility] CLIA [id number] [address] [place] [address] [place] CLINICAL HISTORY, CYTOLOGY, FREIGHT COORDINATOR Post Menopausal Normal [facility] Comment on above: Order Comment: Speci men Type: FLUID SPECIMEN Ordering Facility: [facility] Address: [address] [place] [address] Performed By: #### L [id number] #### [facility] CLIA [id number] [address] [place] [address] [place] CYTOLOGY PAP OTHER INTERPRETATION Atrophic specimen. Normal [facility] Comment on above: Order Comment: Speci men Type: FLUID SPECIMEN Ordering Facility: [facility] Address: [address] [place] [address] Performed By: #### L [id number] #### [facility] CLIA [id number] [address] [place] [address] [place] FINAL PERFORMING LAB Normal [facility] Comment on above: Order Comment: Speci men Type: FLUID SPECIMEN Ordering Facility: [facility] Address: [address] [place] [address] Result Comment: Tech nical component, circular gang saw operator screening performed at [facility], [address] [place] [address] CLIA# [id number] Diagnostic interpretation performed at [facility], [address] [place] [address] CLIA# [id number] Software Security Architect: Matteo Scott M.D. Performed By: #### L [id number] #### [facility] CLIA [id number] [address] [place] [address] [place] INTERPRETATION, CYTOLOGY, FREIGHT COORDINATOR Normal [facility] Comment on above: Order Comment: Speci men Type: FLUID SPECIMEN Ordering Facility: [facility] Address: [address] [place] [address] Result Comment: Nega tive for intraepithelial lesion or malignancy. at 1408 EDT Performed By: #### L [id number] #### [facility] CLIA [id number] [address] [place] [address] [place] PAP DISCLAIMER COMMENT The Pap Smear is a screening test for cervical cancer. False negative results occur with all screening tests, emphasizing the need for rescreening at recommended intervals, and clinical correlation. Normal [facility] Comment on above: Order Comment: Speci men Type: FLUID SPECIMEN Ordering Facility: [facility] Address: [address] [place] [address] Performed By: #### L [id number] #### [facility] CLIA [id number] [address] [place] [address] [place] PAP OPERATIONS SUPERVISOR CHEMICAL CLEANING COMMENT This specimen has be en analyzed by the ThinPrep Imaging System, an automated imaging and review system, which assists the laboratory in evaluating cells on ThinPrep Pap tests. Following automated imaging, selected arce from every slide are reviewed by a circular gang saw operator. Normal [facility] Comment on above: Order Comment: Speci men Type: FLUID SPECIMEN Ordering Facility: [facility] Address: [address] [place] [address] Performed By: #### L [id number] #### [facility] CLIA [id number] [address] [place] [address] [place] 08-21-2024 DAM[facility] Telephone (PixelPlay) NERIS MORTON ([id number]) 1970 F Date Time Provider Department 08/21/24 LEONIDAS STARK During your visit today, we recorded the following information about you: Margarita Miller MA 08/21/2024 11:20 AM Signed Received lab results from [facility]. Entered into XipLink. Placed on docs desk for review. Please advise, thanks. Allergies As of Date: 08/21/2024 (No Known Allergies) Date Reviewed: 08/12/2024 Reviewed by: Razia Blount MA - Fully Assessed Reason for Visit: Results [95] Cmt: [facility] Order(s):ALDOSTERONE [[id number]] Order #: [id number] Prescriptions as of 09/04/2024 - methIMAzole (TAPAZOLE) 5 mg tablet Take 1 tablet by mouth once daily. Problem List As Of Date 08/21/2024 Noted Resolved Unspecified symptom associated with female azalia*10/29/2008 11/16/2012 Dyspareunia [FWO9100] 10/29/2008 09/27/2015 Abnormal uterine bleeding [N93.9] 11/16/2012 02/19/2014 Bulky or enlarged uterus [N85.2] 11/16/2012 02/19/2014 Graves disease [E05.00] 02/21/2016 Elevated blood pressure reading without diagnos*02/17/2019 Encounter Status:Closed by MARGARITA MILLER on 09/04/24 Normal [facility] Aldosterone, Serumon 024 ALDOSTERONE,S 1.5 ng/dL Normal 0.0-30.0 [facility] Comment on above: Order Comment: Test( s) 679053-Vvzzv Activity, Plasma was developed and its performance characteristics determined by [facility]. It has not been cleared or approved by the Food and Drug Administration. Result Comment: Perf ormed at: - [facility] [id number] [place] Operator: aSra Moses MD, Phone: [phone] Performed By: #### L 506.0400, L3400.4000, L3300.1100, L500.4050, L501.9520 #### [facility] [address] [place], [place], [id number] Renin, Plasmaon 08-20-2024 RENIN, PLASMA 0.722 ng/mL/hr Normal 0.167-5.380 [facility] Comment on above: Order Comment: Test( s) 689515-Wujqa Activity, Plasmawas developed and its performance characteristicsdetermined by [facility]. It has not been cleared or approvedby the Food and Drug Administration. Performed By: #### L 506.0400, L3400.4000, L3300.1100, L500.4050, L501.9520 ####[facility] [id number] [place], [place], [id number] CNPNon 08-13-2024 [facility]ER[facility] MORT[facility] ([id number]) 1970 F Date Time Provider Department 08/13/24 LEONIDAS STARK During your visit today, we recorded the following information about you: Margarita Miller MA 08/13/2024 12:01 PM Signed Received lab results from [facility]. Entered into XipLink. Placed on docs desk for review. Please advise, thanks. Allergies As of Date: 08/13/2024 (No Known Allergies) Date Reviewed: 08/12/2024 Reviewed by: Razia Blount MA - Fully Assessed Reason for Visit: Results [95] Cmt: [facility] Order(s):CMP (EXTERNAL) [[id number]] Order #: [id number] FREE T4 + TSH [[id number]] Order #: [id number] Prescriptions as of 08/19/2024 - methIMAzole (TAPAZOLE) 5 mg tablet Take 1 tablet by mouth once daily. Problem List As Of Date 08/13/2024 Noted Resolved Unspecified symptom associated with female azalia*10/29/2008 11/16/2012 Dyspareunia [OIZ0545] 10/29/2008 09/27/2015 Abnormal uterine bleeding [N93.9] 11/16/2012 02/19/2014 Bulky or enlarged uterus [N85.2] 11/16/2012 02/19/2014 Graves disease [E05.00] 02/21/2016 Elevated blood pressure reading without diagnos*02/17/2019 Encounter Status:Closed by MARGARITA MILLER on 08/19/24 Normal [facility] ALDOSTERONEon 08-12-2024 Aldosterone 1.5 0.0 - 30.0 [facility] CMP (EXTERNAL)on 08-12-2024 Alk Phos Total 84 U/L 45 - 117 U/L [facility] Anion gap [Moles/Vol] 4 mmol/L Abnormal 5 - 15 [facility] Bili Total 0.30 mg/dL 0.2 - 1 mg/dL [facility] Calcium [Mass/Vol] 9.0 mg/dL 8.5 - 10. 1 mg/dL [facility] GFR 57 - PINF [facility] GFR AFR AMER 69 - PINF [facility] GLOBULIN 3.6 2.2 - 4.2 [facility] Interpretation and review of laboratory results Abnormal [facility] Protein [Mass/Vol] 7.2 g/dL [facility] Urea nitrogen/Creatinine [Mass ratio] 10.3 mg/mg [facility] CNCOon 08-12-2024 CNCO Letter Text Normal [facility] CNOVon 08-12-2024 CNOV Office Visit (ENDMED ) NERIS MORTON ([id number]) 1970 F Date Time Provider Department 08/12/24 11:00 AM LEONIDAS STARK ENDMED During your visit today, we recorded the following information about you: Pulse Blood pressure Weight Height 83/minute 146/86 80.9 kg 1.675 m Leonidas Stark MD 08/12/2024 11:10 AM Signed Follow-up 53 year-old female with history of Graves disease which had recurred despite 174-[id number]-erfwbrc hypothyroidism. Also has had elevated blood pressure without diagnosis of hypertension. Radioiodine treatment was in 2009. She had been euthyroid again in 2011 and 2012, then TSH became suppressed again despite lower and lower levothyroxine doses. Says is exercising, feeling well. Says BP checks have been fine. No periods. Restarted methimazole in 2019. Failed remission in 09/2023. Current Outpatient Medications on File Prior to Visit Medication Sig methIMAzole (TAPAZOLE) 5 mg tablet Take 1 tablet by mouth once daily. ALLERGIES No Known Allergies Review of systems: [...] of review of systems was unremarkable. BP 164/107 Pulse 83 Ht 167.5 cm (5' 5.95) Wt 80.9 kg (178 lb 5.6 oz) LMP 12/07/2018 (Within Weeks) SpO2 99% BMI 28.83 kg/m? General appearance: Well-appearing, overweight (BMI greater than 25) female, alert, in no acute distress, well-hydrated, well nourished. Weight down 2 pounds since 09/2023. BP elevated, pulse regular. Repeat BP 146/86 Skin: Skin color, texture, turgor normal, no [...] grossly intact. Latest Reference Range AND Units 01/06/24 00:00 TSH 0.358 - 3.74 IU/ml 1.24 (E) T4,FREE (DIRECT) 0.76 - 1.46 0.83 (E) (E): External lab result IMPRESSION: Graves disease - check TFTs on the current methimazole dose Elevated blood pressure without diagnosis of hypertension - check BP in the community, stressed goal BP less than 130/80 mm Hg. Check CMP, joann/renin ratio. PLAN: Check BP in the community, stressed goal BP less than 130/80 mm Hg. Continue weight loss efforts Check TSH, free T4, CMP, joann/renin at [facility] See me again in 12 months Leonidas Stark MD I spent a total of 30 minutes on the date of service which included preparing to see the patient, [id number] patient care, completing clinical documentation, performing a medically appropriate examination, counseling and educating the patient/family/caregiver and ordering medications, tests, or procedures. Leonidas Stark MD 08/12/2024 11:01 AM Signed Get labs done at [facility]. Will call with results. Check BP in the community, goal BP less than 130/80 mm Hg. See me again in 12 months. Allergies As of Date: 08/12/2024 (No Known Allergies) Date Reviewed: 08/12/2024 Reviewed by: Razia Blount MA - Fully Assessed Reason for Visit: Follow Up [171] Primary Visit Diagnosis:Graves disease [E05.00] Other Visit Diagnosis:Elevated blood pressure reading without diagnosis of hypertension [R03.0] Order(s):methIMAzole (TAPAZOLE) 5 mg tabletTake 1 tablet by mouth once daily.Disp: 90 tabletRfl: 3 Prescriptions as of 08/12/2024 - methIMAzole (TAPAZOLE) 5 mg tablet Take 1 tablet by mouth once daily. Problem List As Of Date 08/12/2024 Noted Resolved Unspecified symptom associated with female azalia*10/29/2008 11/16/2012 Dyspareunia [HSO0193] 10/29/2008 09/27/2015 Abnormal uterine bleeding [N93.9] 11/16/2012 02/19/2014 Bulky or enlarged uterus [N85.2] 11/16/2012 02/19/2014 Graves disease [E05.00] 02/21/2016 Elevated blood pressure reading without diagnos*02/17/2019 Other instructions from your clinician: Get labs done at [facility]. Will call with results. C (more content not included)... Normal [facility] Metabolic Prof khang 08-12-2024 Albumin [Mass/Vol] 3.6 g/dL Normal 3.2-5.0 [facility] Comment on above: Performed By: #### L 506.0400, L3400.4000, L3300.1100, L500.4050, L501.9520 #### [facility] [address] [place], [address] Albumin/Globulin [Mass ratio] 1.0 {ratio} Normal 0.9-2.4 [facility] Comment on above: Performed By: #### L 506.0400, L3400.4000, L3300.1100, L500.4050, L501.9520 #### [facility] [address] [place], [address] ALK P 84 U/L Normal 45-117 [facility] Comment on above: Performed By: #### L 506.0400, L3400.4000, L3300.1100, L500.4050, L501.9520 #### [facility] [address] [place], [address] ALT [Catalytic activity/Vol] 26 U/L Normal 13-56 [facility] Comment on above: Performed By: #### L 506.0400, L3400.4000, L3300.1100, L500.4050, L501.9520 #### [facility] [address] [place], [address] AST [Catalytic activity/Vol] 13 U/L Low 15-37 [facility] Comment on above: Performed By: #### L 506.0400, L3400.4000, L3300.1100, L500.4050, L501.9520 #### [facility] [address] [place], [address] Bilirubin [Mass/Vol] 0.30 mg/dL Normal 0.20-1.00 [facility] Comment on above: Result Comment: For patients on eltrombopag therapy, use of Dimension Emmett TBIL is not recommended. Performed By: #### L 506.0400, L3400.4000, L3300.1100, L500.4050, L501.9520 #### [facility] [address] [place], [address] BUN/CRE 10.3 RATIO Normal 10-20 [facility] Comment on above: Performed By: #### L 506.0400, L3400.4000, L3300.1100, L500.4050, L501.9520 #### [facility] [address] [place], [address] CA,Total 9.0 mg/dL Normal 8.5-10.1 [facility] Comment on above: Performed By: #### L 506.0400, L3400.4000, L3300.1100, L500.4050, L501.9520 #### [facility] [address] [place], [address] Chloride [Moles/Vol] 108 mmol/L High 98-107 [facility] Comment on above: Performed By: #### L 506.0400, L3400.4000, L3300.1100, L500.4050, L501.9520 #### [facility] [address] [place], [address] CO2 [Moles/Vol] 30.0 mmol/L Normal 21.0-32.0 [facility] Comment on above: Performed By: #### L 506.0400, L3400.4000, L3300.1100, L500.4050, L501.9520 #### [facility] [address] [place], [address] Creatinine [Mass/Vol] 1.07 mg/dL High 0.55-1.02 [facility] Comment on above: Result Comment: The validity of the calculated GFR GFRAA in patients over 70 years has not been determined. Clinical correlation is essential. Performed By: #### L 506.0400, L3400.4000, L3300.1100, L500.4050, L501.9520 #### [facility] [address] [place], [address] EST GFR - AA 69 mL/min Normal >60 [facility] Comment on above: Result Comment: Afri can Algerian GFR Calc Performed By: #### L 506.0400, L3400.4000, L3300.1100, L500.4050, L501.9520 #### [facility] [address] [place], [address] GAP 4 Low 5-15 [facility] Comment on above: Performed By: #### L 506.0400, L3400.4000, L3300.1100, L500.4050, L501.9520 #### [facility] [address] [place], [address] GFR/1.73 sq M.predicted among non-blacks MDRD (S/P/Bld) [Vol rate/Area] 57 mL/min/{1.73_m2} Low >60 [facility] Comment on above: Result Comment: Non- GFR Calc Performed By: #### L 506.0400, L3400.4000, L3300.1100, L500.4050, L501.9520 #### [facility] [address] [place], [address] Globulin (S) [Mass/Vol] 3.6 g/dL Normal 2.2-4.2 [facility] Comment on above: Performed By: #### L 506.0400, L3400.4000, L3300.1100, L500.4050, L501.9520 #### [facility] [address] [place], [address] Glucose [Mass/Vol] 93 mg/dL Normal 74-106 [facility] Comment on above: Performed By: #### L 506.0400, L3400.4000, L3300.1100, L500.4050, L501.9520 #### [facility] [address] [place], [address] Potassium [Moles/Vol] 3.8 mmol/L Normal 3.5-5.1 [facility] Comment on above: Performed By: #### L 506.0400, L3400.4000, L3300.1100, L500.4050, L501.9520 #### [facility] [address] [place], [address] Sodium [Moles/Vol] 142 mmol/L Normal 136-145 [facility] Comment on above: Performed By: #### L 506.0400, L3400.4000, L3300.1100, L500.4050, L501.9520 #### [facility] [address] [place], [address] T PROT 7.2 g/dL Normal 6.4-8.2 [facility] Comment on above: Performed By: #### L 506.0400, L3400.4000, L3300.1100, L500.4050, L501.9520 #### [facility] [address] [place], [address] Urea nitrogen [Mass/Vol] 11 mg/dL Normal 7-18 [facility] Comment on above: Performed By: #### L 506.0400, L3400.4000, L3300.1100, L500.4050, L501.9520 #### [facility] [address] [place], [address] FREE T4 + TSHon 08-12-2024 Free T4 [Mass/Vol] 0.80 ng/dL 0.76 - 1.46 [facility] TSH Qn 1.060 m[IU]/L [facility] No Panel Informationon 08-12 [facility] T4 Free Directon 08-12-2024 T4 FREE DIRECT 0.80 ng/dL Normal 0.76-1.46 [facility] Comment on above: Performed By: #### L 506.0400, L3400.4000, L3300.1100, L500.4050, L501.9520 #### [facility] [address] [place], [address] Thyroid Stim Hormone (TSH)on 08-12-2024 TSH 1.060 uIU/mL Normal 0.358-3.740 [facility] Comment on above: Performed By: #### L 506.0400, L3400.4000, L3300.1100, L500.4050, L501.9520 #### [facility] [address] [place], [address] Office Visit Reporton 2023 Office Visit Report [facility] [address] [place] [address] OFFICE VISIT Date of Service: 07/09/24 MR#: [id number] Acct: [id number] Patient: NERIS MORTON Rep #: [id number] : 1970 Provider: KATHIE Boo Age/Sex: 53/F Location[facility] Status: Signed Intake Vital Signs 02/12/24 15:04 07/09/24 15:38 Height 1.68 m Weight: 80.824 kg BMI 28.8 BP 148/66 H Blood Pressure Location Lt brachial Position Sitting Respiration 15 Pulse 92 Pulse Source NIBP Temp 98.5 F Temp Source Temporal Pulse Oximetry (%) 97 Oxygen Delivery Method room air Intake Visit Reasons: CONCERN FOR POISON HERO Chief Complaint: rash Drawer In Dobby Loom Required: No Is patient in pain?: No Allergies No Known Allergies Allergy (Verified 07/09/24 15:42) Is last menstrual period known: No Post menopausal: No Patient : No Have you fallen in the past year?: No Nurse's Note: rash to face, neck, chest, back with itching x 5 days and spreading. concern for poison hero [facility] Medical History (Updated 06/20/24 @ 13:14 by Tank Retana MD) Calcific tendinitis of right shoulder Right shoulder pain Osteoarthritis of left little finger Thyroid disease Surgical History H/O tubal ligation Family History Father Diabetes Social History household members: spouse and children housing: house current occupational status: employed current occupation: secritary Smoking Status: Never smoker alcohol intake: current alcohol intake frequency: holidays/special occasions only frequency: 3-4 times per week do you feel safe at home: Yes HPI HPI Chief Complaint: rash Details: NERIS MORTON, is a 53 F who presents to the office today for poison hero. She has had a rash since . It keeps appearing in new places and is not getting any better. She has a diffuse mildly erythematous maculopapular rash that is highly pruritic on the face, neck, breasts, back, and feet. She has no tongue swelling, throat swelling, wheezing or SOB. She tried a homeopathic remedy with no relief. ROS ENT ENT: No lip swelling, tongue swelling or throat swelling Resp Respiratory: No shortness of breath or wheezing Skin Skin: Positive for redness, itchy eyes and rash; No wounds Aller/Imm Allergy/Immunologic: Positive for itchy eyes; No lip swelling, throat swelling, tongue swelling or wheezing Exam Const General: cooperative, healthy appearing, comfortable, no acute distress, well developed and well groomed Nutritional Appearance: average body habitus and well nourished Orientation: alert, awake and oriented x3 Resp Effort Inspection: normal respiratory effort, able to speak in complete sentences, symmetric chest movement and no cough Auscultation: Bilateral: Clear to Auscultation Skin Other: diffuse mildly erythematous maculopapular rash, face, neck, back, abdomen, feet. Coding Level of Care Code Off vis,est,level 3 Diagnoses Contact dermatitis due to poison hero L23.7 Assessment and Plan Assessment and Plan (1) Contact dermatitis due to poison hero: Status: Acute Plan: start prednisone taper. if no improvement follow up with PCP 1-2 weeks. Medications: New prednisone 40 mg PO daily x 3 days, 30 mg PO daily x 3 days, 20 mg PO daily x 3 days, 10 mg PO daily x 3 days 30 tabs 0RF Clinical Quality Measures Falls Risk Screening/Assistive Devices Have you fallen in the past year?: No 07/09/24 1554 Date Milo Cochran Signature: Date (if applicable) CC: Normal [facility] Orthopedic Visit Reporton Orthopedic Visit Report [facility] [address] [place] [address] OFFICE VISIT Date of Service: 06/20/24 MR#: [id number] Acct: [id number] Name: NERIS MORTON Rep #: [id number] : 1970 Provider: Dr. Tank verdugo MD Age/Sex: 53/F Location: [facility] Status: Signed with Addenda ADDENDUM by Rhonda Ramirez on 06/20/24 at 1440 Office Procedure Documentation entered by Rhonda Ramirez 06/20/24 14:40: Ortho Injections Injections Yes Subacromial Injection Right Is this a patient provided medication?: No Details: Obtained consent for injection. Under sterile conditions, injected the patients right shoulder with 2cc Kenalog 4cc Bupivacaine. The patient tolerated the injection well without any noted complication. Patient should call our office if redness develops, pain worsens or if they have any concerns. Office Meds Kenalog 40 mg/mL suspension for injection Performing Provider: Tank Retana MD Performing Location: [facility] Administered by: Tank Retana MD on 06/20/24 14:39 Dose Route Admin Location Dispensed Lot Number Expiration Date JP [employer] ufacturer 80 mg intra-articular right shoulder 2 mL [id number] 01/07/26 5310-2089-09 [employer] Date cc: * Signed Intake Vital Signs 02/12/24 15:04 Height 5 ft 6 in Weight: 178 lb 3 oz BMI 28.8 Intake Visit Reasons: RIGHT SHOULDER Accompanied by: Self Is patient in pain?: Yes Pain scale (1-10): 7 Allergies No Known Allergies Allergy (Verified 06/20/24 13:02) Medications ???Medication ???Instructions ???Recorded ???Confirmed ???Type methimazole 5 mg tablet 5 mg PO DAILY 12/10/20 06/20/24 History PFSH Medical History (Updated 06/20/24 @ 13:14 by Tank Retana MD) Calcific tendinitis of right shoulder Right shoulder pain Osteoarthritis of left little finger Thyroid disease Surgical History H/O tubal ligation Family History Father Diabetes Social History household members: spouse and children housing: house current occupational status: employed current occupation: secritary Smoking Status: Never smoker alcohol intake: current alcohol intake frequency: holidays/special occasions only frequency: 3-4 times per week do you feel safe at home: Yes HPI RIGHT SHOULDER Details: This documentation accurately reflects the service provided and the decisions made by me, Dr. Tank Retana MD 06/20/24 0695. Part of today???s visit was documented by [ ], acting as scribe. NERIS PRAVEEN is a 53 year old F here today for R shoulder pain. lateral side shoulder pain. works on the computer. RHD. no prior issues 6 days no trauma. going down the arm. coming and going. worse at night. level of the pain - 5/10. worse with lifting to the side. better today. doing [place]. [place] - Supplemental Info 4 views right shoulder x-rays obtained today shows signs of calcific tendinitis. Glenohumeral joint space well-maintained no acute abnormalities. Coding Level of Care Code Attention Research Chef Diagnoses Right shoulder pain M25.511 Calcific tendinitis of right shoulder M75.31 Comment 27135 and cpt inject major joint Assessment and Plan Assessment and Plan (1) Right shoulder pain: Status: Acute Plan: NERIS MORTON is a 53 year old F here today for R shoulder pain. Patient signs symptoms and physical exam findings consistent with impingement syndrome and calcific tendinitis. Low suspicion for rotator cuff tear. Could have a bursitis tendinosis or other problems about the shoulder. The patient counseled on diagnosis prognosis different treatment options including but not limited to rest ice anti-inflammatories active modification subacromial cortisone injections and physical therapy other forms of nonsurgical management as well as surgery in the form of shoulder arthroscopy debridement possible rotator cuff repair. The patient understands wishes to start with a cortisone injection did that for the patient today and they will follow-up in 6 weeks time or as needed. If the patient is no better or worse the next step would be advanced imaging in the form of an MRI. They understood no further questions or concerns. Pros and cons risks and benefits of a right shoulder subacromial steroid injection were discussed. Patient wished to proceed. Risks include but not limited to infection, pain, stiffness, damage to other structures, neurovascular injury, wear further tear of the tendon and other structures such as the skin, bleeding, allergic reaction, acute flare reaction and other risks. Obtained (more content not included)... Normal [facility] Shoulder min 2 Viewson 06-20 Shoulder min 2 Views [facility] [address] [place] [address] Shoulder min 2 Views MR#: [id number] Acct: [id number] Name: NERIS MORTON Rep #: [id number] : 1970 F 53 From: Ernie Hodge MD PCP: Status: DEP AMB Study: Shoulder min 2 Views Date of Exam: 06/20/24 Exam# [id number] Ordering Dr: Tank Retana MD [id number] STUDY: X-RAY - RIGHT SHOULDER REASON FOR EXAM: Female, 53 years old. Pain. TECHNIQUE: 4 view(s) of the shoulder. COMPARISON: None. FINDINGS: Normal glenohumeral articulation. Mild arthrosis of the acromioclavicular joint joint. Normal acromion. Normal humeral head and visualized proximal humerus. Calcific tendinosis. Normal visualized pulmonary apex. RAD/Shoulder min 2 Views IMPRESSION: Mild arthrosis of the acromioclavicular joint with calcific tendinosis. Electronically Signed: Ernie Hodge MD at 13:23 EDT Reading Location ID and State: [address] [place] [address] , Service support , CC: Dr. Tank Retana MD Insole Beveler: Signed Normal [facility] Finger(s) Min 2 Views Finger(s) Min 2 Views [facility] [address] [place] [address] Finger(s) Min 2 Views MR#: [id number] Acct: [id number] Name: NERIS MORTON Rep #: [id number] : 1970 F 53 From: Ron Wells MD PCP: Ewelina Gómez DO Status: DEP AMB Study: Finger(s) Min 2 Views Date of Exam: 02/12/24 Exam# [id number] Ordering Dr: Tank Retana MD [id number] STUDY: X-RAY - LEFT HAND, ATTENTION FIFTH FINGER REASON FOR EXAM: Female, 53 years old. Pain at DIP, little finger. TECHNIQUE: 3 views of the left fifth finger were obtained. COMPARISON: None. FINDINGS: Normal metacarpal head. Normal metacarpophalangeal joint. Normal proximal phalanx. Normal middle phalanx. Normal distal phalanx. Normal proximal interphalangeal joint. There is moderate to severe degenerative arthrosis of the fifth DIP joint. There is no demonstrated fracture. RAD/Finger(s) Min 2 Views IMPRESSION: Moderate to severe degenerative arthrosis of the fifth DIP joint. Electronically Signed: Ron Wells MD at 16:04 EDT Reading Location ID and State: [address] [place] [address] , Service support , CC: Dr. Tank Retana MD; Ewelina Gómez DO Insole Beveler: Signed Normal [facility] Orthopedic Visit Reporton Orthopedic Visit Report [facility] [address] [place] [address] OFFICE VISIT Date of Service: 02/12/24 MR#: [id number] Acct: [id number] Name: NERIS MORTON Rep #: [id number] : 1970 Provider: Dr. Tank verdugo MD Age/Sex: 53/F Location: [facility] Status: Signed Intake Vital Signs 12/16/20 11:11 02/12/24 15:04 Height 5 ft 6 in 5 ft 6 in Weight: 178 lb 3 oz BMI 28.8 Intake Visit Reasons: LEFT HAND Chief Complaint: Left hand Accompanied by: Self Is patient in pain?: Yes Pain scale (1-10): 3 Allergies No Known Allergies Allergy (Verified 02/12/24 15:04) Medications methimazole 5 mg tablet 5 mg PO DAILY 12/10/20 [History Confirmed 02/12/24] [facility] Medical History (Updated 02/12/24 @ 15:15 by Tank Retana MD) Osteoarthritis of left little finger Thyroid disease Surgical History H/O tubal ligation Family History Father Diabetes Social History household members: spouse and children housing: house current occupational status: employed current occupation: secritary Smoking Status: Never smoker alcohol intake: current alcohol intake frequency: holidays/special occasions only frequency: 3-4 times per week do you feel safe at home: Yes HPI LEFT HAND Details: This documentation accurately reflects the service provided and the decisions made by me, Dr. Tank Retana MD 02/12/24 1502. Part of today???s visit was documented by [ ], acting as scribe. NERIS MORTON is a 53 year old F here today for noticing a bit of a bump on the distal aspect dorsal aspect of the left fifth digit. It is painful to squeeze on they are painful sometimes a type. The pain comes and goes. This has been developing for years. No acute trauma. Ortho Exam General General: Yes no acute distress Neurologic: Yes alert and Yes oriented x3 Psychologic: Yes reasonable and appropriate Right Wrist/Hand Skin/Wound: No Swelling and No Ecchymosis Left Wrist/Hand Skin/Wound: Yes CDI, No Swelling, No Ecchymosis, Yes nail intact, Yes capillary refill normal and No erythema Left Wrist: Yes ROM-Extension 0-60, Yes ROM-Flexion 0-80, Yes ROM-Pronation 0-80 and Yes ROM- Supination 0-90 Motor: EPL: 5, FDP-2: 5, 1st Dorsal Interosseous: 5 and APB: 5 Sensation: Radial: I, Ulnar: I and Median: I WRIST: pain and mild stiffness, with small heberdens nodes at dip dorsal aspect 5th digit. Supplemental Info xr 2 view L 5th digit. Advanced osteoarthritis and joint space narrowing of the DIP joint. Coding Level of Care Code Off vis,est,level 3 Diagnoses Osteoarthritis of left little finger M19.042 Assessment and Plan Assessment and Plan (1) Osteoarthritis of left little finger: Status: Acute Plan: 53 yr F with heberdens nodes at dip L fifth digit and advanced OA DIP joint. Patient counseled on the diagnosis prognosis different treatment options available including but not limited to rest ice anti-inflammatories activity modifications rxuy-gyr-bndnaed medications as well as surgical options debridement versus fusion or arthroplasty. The patient understands will follow-up as needed they declined any sort of formal interventions. FU if any red flag symptoms rapid growth increased pain or other problems. Orders: Orders Finger(s) Min 2 Views Today M19.042 - Primary osteoarthritis, left hand 02/12/24 1533 Date Tank Cochran Signature: Date (if applicable) CC: Normal [facility] 01-08-2024 [facility] Telephone ([facility]) NERIS MROTON ([id number]) 1970 F Date Time Provider Department 01/08/24 LEONIDAS STARK During your visit today, we recorded the following information about you: Margarita Miller MA 01/08/2024 9:13 AM Signed Received lab results from [facility]. Entered into [employer]. Placed on docs desk for review. Please advise, thanks. Meng Ngo APRN.MARVIN 01/09/2024 3:30 PM Signed Reviewed. Labs are stable. [facility] message sent to patient. Allergies As of Date: 01/08/2024 (No Known Allergies) Date Reviewed: 10/04/2023 Reviewed by: Margarita Miller MA - Fully Assessed Reason for Visit: Results [95] Cmt: [facility] Order(s):FREE T4 + TSH [[id number]] Order #: [id number] Prescriptions as of 01/09/2024 - methIMAzole (TAPAZOLE) 5 mg tablet Take 1 tablet by mouth once daily. Problem List As Of Date 01/08/2024 Noted Resolved Unspecified symptom associated with female azalia*10/29/2008 11/16/2012 Dyspareunia [BQB9047] 10/29/2008 09/27/2015 Abnormal uterine bleeding [N93.9] 11/16/2012 02/19/2014 Bulky or enlarged uterus [N85.2] 11/16/2012 02/19/2014 Graves disease [E05.00] 02/21/2016 Elevated blood pressure reading without diagnos*02/17/2019 Encounter Status:Closed by MENG NGO on 01/09/24 Normal [facility] FREE T4 + TSHon 01-06-2024 Free T4 [Mass/Vol] 0.83 ng/dL 0.76 - 1.46 [facility] TSH 1.24 IU/ml 0.358 - 3.74 IU/ml [facility] Serum or plasma thyroid stim ulating hormone (TSH) measurement (units/volume)Ordered By: Leonidas Stark on 01-06-2024 TSH Qn 1.24 uIU/mL 0.358-3.74 [facility] T4 Free Directon 01-06-2024 T4 FREE DIRECT 0.83 ng/dL Normal 0.76-1.46 [facility] Comment on above: Performed By: #### L 506.0400, [id number] ####[facility] [id number] [place], [place], [id number] Thin prep Papanicolaou smear with manual screeningOrdered By: Leonidas Stark on 01-06-2024 Thin prep Papanicolaou smear with manual screening 0.83 ng/dL 0.76-1.46 [facility] Thyroid Stim Hormone (TSH)on 01-06-2024 TSH 1.24 uIU/mL Normal 0.358-3.74 [facility] Comment on above: Performed By: #### L 506.0400, [id number] ####[facility] [id number] [place], [place], [id number] FREE T4 + TSHon 12-09-2023 Free T4 [Mass/Vol] 0.70 ng/dL Abnormal 0.76 - 1.46 [facility] TSH 2.58 IU/ml 0.358 - 3.74 IU/ml [facility] Serum or plasma thyroid stim ulating hormone (TSH) measurement (units/volume)Ordered By: Leonidas Stark on 12-09-2023 TSH Qn 2.58 uIU/mL 0.358-3.74 [facility] Thin prep Papanicolaou smear with manual screeningOrdered By: Leonidas Stark on 12-09-2023 Thin prep Papanicolaou smear with manual screening 0.70 ng/dL 0.76-1.46 [facility] Serum or plasma thyroid stim ulating hormone (TSH) measurement (units/volume)Ordered By: Leonidas Stark on 11-16-2023 TSH Qn 0.18 uIU/mL 0.358-3.74 [facility] THYROID PANEL - EXTERNALon 0 11-16-2023 Free Thyroxine (FT4) - Intl 0.92 0.76 - 1.46 [facility] TSH - Intl 0.18 Abnormal 0.358 - 3.74 [facility] Thin prep Papanicolaou smear with manual screeningOrdered By: Leonidas Stark on 11-16-2023 Thin prep Papanicolaou smear with manual screening 0.92 ng/dL 0.76-1.46 [facility] Laboratory - Chemistry and C hemistry - challengeOrdered By: Leonidas Stark on 10-14-2023 Free T4 [Mass/Vol] 1.35 ng/dL 0.76-1.46 [facility] No Panel InformationOrdered By: Leonidas Stark on 10-14-2023 Thyroid Stimulating Hormone (TSH) 0.03 uIU/mL 0.358-3.74 [facility] Laboratory - Chemistry and C hemistry - challengeOrdered By: Leonidas Stark on 07-15-2023 Free T4 [Mass/Vol] 0.74 ng/dL 0.76-1.46 [facility] No Panel InformationOrdered By: Leonidas Stark on 07-15-2023 Thyroid Stimulating Hormone (TSH) 3.66 uIU/mL 0.358-3.74 [facility] AST/SGOT BLOOD (AK,AV,EU,FV, HL,CARRIE,MM,SP)on 06-08-2023 AST [Catalytic activity/Vol] 15 U/L 15 - 37 U/L [facility] Basophil percentageOrdered B y: Meng Ngo on 06-08-2023 WBC (Bld) [#/Vol] 4.7 10*3/uL 4.4-11.0 [facility] Blood erythrocytes count (nu mber/volume)Ordered By: Meng Ngo on 06-08-2023 RBC (Bld) [#/Vol] 4.60 10*6/uL 4.2-5.4 [facility] Blood hemoglobin measurement (mass/volume)Ordered By: Meng Ngo on 06-08-2023 Hemoglobin (Bld) [Mass/Vol] 13.7 g/dL 12.0-15.0 [facility] Blood platelet mean volumeOr dered By: Meng Ngo on 06-08-2023 Platelet mean volume (Bld) [Entitic vol] 9.2 fL 6.2-12.0 [facility] Determination of erythrocyte mean corpuscular volume (MCV)Ordered By: Meng Ngo on 06-08-2023 MCV (RBC) [Entitic vol] 90.0 fL 81-99 [facility] Hematocrit Auto (Bld) [Volum e fraction]Ordered By: Meng Ngo on 06-08-2023 Hematocrit (Bld) [Volume fraction] 41.4 % 37-47 [facility] Laboratory - Chemistry and C hemistry - challengeOrdered By: Meng Ngo on 06-08-2023 ALT [Catalytic activity/Vol] 35 U/L 13-56 [facility] Free T4 [Mass/Vol] 0.89 ng/dL 0.76-1.46 [facility] Laboratory - Hematology and Cell countsOrdered By: Meng Ngo on 06-08-2023 Erythrocyte distribution width (RBC) [Entitic vol] 37.9 fL 35.1-43.9 [facility] Erythrocyte distribution width (RBC) [Ratio] 11.8 % 11.6-14.6 [facility] MCH (RBC) [Entitic mass] 29.8 pg 27.0-32.0 [facility] MCHC Auto (RBC) [Mass/Vol]Or dered By: Meng Ngo on 06-08-2023 MCHC (RBC) [Mass/Vol] 33.1 g/dL 32-36 [facility] No Panel InformationOrdered By: Meng Ngo on 06-08-2023 Free Triiodothyronine (T3) pg/dL 2.9 pg/mL 2.18-3.98 [facility] Thyroid Stimulating Hormone (TSH) 2.22 uIU/mL 0.358-3.74 [facility] Platelets bldOrdered By: Karthikeyan Ngo on 06-08-2023 Platelets (Bld) [#/Vol] 247 10*3/uL 150-450 [facility] THYROID PANEL - EXTERNALon 0 06-08-2023 Free Thyroxine (FT4) - Intl 0.89 0.76 - 1.46 [facility] T3, Free - Intl 2.9 2.18 - 3.98 [facility] TSH - Intl 2.22 0.358 - 3.74 [facility] Thin prep Papanicolaou smear with manual screeningOrdered By: Meng Ngo on 06-08-2023 Thin prep Papanicolaou smear with manual screening 15 U/L 15-37 [facility] T4 [Mass/Vol]on 01-09-2023 Free T4 [Mass/Vol] 0.98 ng/dL 0.76 - 1.46 [facility] TSH (EXTERNAL)on 01-09-2023 TSH 0.40 IU/ml 0.358 - 3.74 IU/ml [facility] Basophil percentageOrdered B y: Meng Ngo on 11-25-2022 Bilirubin [Mass/Vol] 0.40 mg/dL 0.20-1.00 [facility] Comment on above: For patients on eltr ombopag therapy, use of Dimension [place] TBIL is not recommended. Chloride [Moles/Vol] 110 mmol/L 98-107 [facility] Glucose [Mass/Vol] 113 mg/dL 74-106 [facility] Comment on above: Fasting Glucose resu lt from 100 to 125 mg/dL suggests IMPAIRED HOMEOSTASIS per A.D.A. criteria. Potassium [Moles/Vol] 4.0 mmol/L 3.5-5.1 [facility] Protein [Mass/Vol] 7.6 g/dL 6.4-8.2 [facility] Sodium [Moles/Vol] 143 mmol/L 136-145 [facility] WBC (Bld) [#/Vol] 3.6 10*3/uL 4.4-11.0 [facility] Blood erythrocytes count (nu mber/volume)Ordered By: Meng Ngo on 11-25-2022 RBC (Bld) [#/Vol] 4.45 10*6/uL 4.2-5.4 [facility] Blood hemoglobin measurement (mass/volume)Ordered By: Meng Ngo on 11-25-2022 Hemoglobin (Bld) [Mass/Vol] 13.0 g/dL 12.0-15.0 [facility] Blood platelet mean volumeOr dered By: Meng Ngo on 11-25-2022 Platelet mean volume (Bld) [Entitic vol] 8.9 fL 6.2-12.0 [facility] Determination of erythrocyte mean corpuscular volume (MCV)Ordered By: Meng Ngo on 11-25-2022 MCV (RBC) [Entitic vol] 88.8 fL 81-99 [facility] Hematocrit Auto (Bld) [Volum e fraction]Ordered By: Meng Ngo on 11-25-2022 Hematocrit (Bld) [Volume fraction] 39.5 % 37-47 [facility] Laboratory - Chemistry and C hemistry - challengeOrdered By: Meng Ngo on 11-25-2022 ALP [Catalytic activity/Vol] 89 U/L 45-117 [facility] ALT [Catalytic activity/Vol] 29 U/L 13-56 [facility] CO2 [Moles/Vol] 28.0 mmol/L 21.0-32.0 [facility] Free T4 [Mass/Vol] 1.02 ng/dL 0.76-1.46 [facility] Globulin (S) [Mass/Vol] 3.8 g/dL 2.2-4.2 [facility] Urea nitrogen/Creatinine [Mass ratio] 11.9 mg/mg 10-20 [facility] Laboratory - Hematology and Cell countsOrdered By: Meng Ngo on 11-25-2022 Erythrocyte distribution width (RBC) [Entitic vol] 38.5 fL 35.1-43.9 [facility] Erythrocyte distribution width (RBC) [Ratio] 12.0 % 11.6-14.6 [facility] MCH (RBC) [Entitic mass] 29.2 pg 27.0-32.0 [facility] MCHC Auto (RBC) [Mass/Vol]Or dered By: Meng Ngo on 11-25-2022 MCHC (RBC) [Mass/Vol] 32.9 g/dL 32-36 [facility] No Panel InformationOrdered By: Meng Ngo on 11-25-2022 Estimated GFR (MDRD) Amer 74 mL/min >60 [facility] Comment on above: GFR Calc Estimated GFR (MDRD) Non-Af Amer 61 mL/min >60 [facility] Comment on above: Non- GFR Calc Free Triiodothyronine (T3) pg/dL 3.2 pg/mL 2.18-3.98 [facility] Thyroid Stimulating Hormone (TSH) 0.04 uIU/mL 0.358-3.74 [facility] Platelets bldOrdered By: Karthikeyan Ngo on 11-25-2022 Platelets (Bld) [#/Vol] 230 10*3/uL 150-450 [facility] Serum or plasma albumin melida urement (mass/volume)Ordered By: Meng Ngo on 11-25-2022 Albumin [Mass/Vol] 3.8 g/dL 3.2-5.0 [facility] Serum or plasma albumin/glob ulin mass ratioOrdered By: [facility] 11-25-2022 Albumin/Globulin [Mass ratio] 1.0 {ratio} 0.9-2.4 [facility] Serum or plasma calcium melida urement (mass/volume)Ordered By: [facility] on 11-25-2022 Calcium [Mass/Vol] 9.4 mg/dL 8.5-10.1 [facility] Serum or plasma creatinine m easurement (mass/volume)Ordered By: [facility] on 11-25-2022 Creatinine [Mass/Vol] 1.01 mg/dL 0.55-1.02 [facility] Comment on above: The validity of the calculated GFR & GFRAA in patients over 70 years has not been determined. Clinical correlation is essential. Serum or plasma urea nitroge n measurement (mass/volume)Ordered By: [facility] on 11-25-2022 Urea nitrogen [Mass/Vol] 12 mg/dL 7-18 [facility] Thin prep Papanicolaou smear with manual screeningOrdered By: [facility] on 11-25-2022 Thin prep Papanicolaou smear with manual screening 17 U/L 15-37 [facility] Thin prep Papanicolaou smear with manual screening 5 5-15 [facility] CNPNon 08-03-2020 CNPN Telephone (SHYANN) NERIS MORTON ( ) 1970 F Date Time Provider Department 08/03/20 LEONIDAS STARK During your visit today, we recorded the following information about you: Leonidas Stark MD, MD 08/03/2020 9:03 AM Signed Call and tell that thyroid blood test looked fine, no new dose changes. Please repeat labs again in 09/2020, order in [facility]. Thanks Roseann Malik RN 08/03/2020 9:49 AM Signed Notified patient of Dr Stark's message. Patient verbalized understanding. Encounter closed. Allergies As of Date: 08/03/2020 (No Known Allergies) Date Reviewed: 02/15/2019 Reviewed by: Luiz Paz Ma - Fully Assessed Reason for Visit: Results [95] Primary Visit Diagnosis:Graves disease [E05.00] Order(s):TSH BLD [SQTSH] Order #: [id number] FUTURE T4 FREE/FREE THYROX [SQFT4] Order #: [id number] FUTURE Prescriptions as of 08/03/2020 Sig: METHIMAZOLE 5 MG TABLET Take 1 tablet by mouth once d* Problem List As Of Date 08/03/2020 Noted Resolved Unspecified symptom associated with female azalia*10/29/2008 11/16/2012 Dyspareunia [[id number]] 10/29/2008 09/27/2015 More... Abnormal uterine bleeding [N93.9] 11/16/2012 02/19/2014 Bulky or enlarged uterus [N85.2] 11/16/2012 02/19/2014 Graves disease [E05.00] 02/21/2016 More... Elevated blood pressure reading without diagnos*02/17/2019 Encounter Status:Closed by LEONIDAS STARK MD on 08/03/20 [facility] 06-01-2020 [facility] Telephone (SHYANN) NERIS MORTON ( ) 1970 F Date Time Provider Department 06/01/20 LEONIDAS STARK During your visit today, we recorded the following information about you: Leonidas Stark MD, 06/01/2020 8:13 AM Signed Please call and tell her the thyroid hormone levels are unimproved. She should increase methimazole back to 5 mg every day and repeat blood tests in 2-3 weeks (order in [facility]). The following approved medication requests have been transmitted electronically. Signed Prescriptions Disp Refills metHIMazole (TAPAZOLE) 5 mg tablet 90 tablet 3 Sig: Take 1 tablet by mouth once daily. TIAN: No Authorizing Provider: LEONIDAS STARK MD Jennifer Sipsock RN 06/01/2020 9:39 AM Signed Notified patient of Dr Stark's message. Patient verbalized understanding. Encounter closed. Allergies As of Date: 06/01/2020 (No Known Allergies) Date Reviewed: 02/15/2019 Reviewed by: Luiz Paz Ma - Fully Assessed Reason for Visit: Results [95] Visit Diagnosis:Graves disease [E05.00] Order(s):metHIMazole (TAPAZOLE) 5 mg tabletTake 1 tablet by mouth once daily.Disp: 90 tabletRfl: 3 TSH BLD [SQTSH] Order #: [id number] FUTURE T4 FREE/FREE THYROX [SQFT4] Order #: [id number] FUTURE T3 FREE BLD [SQFREET3] Order #: [id number] FUTURE Prescriptions as of 06/01/2020 Sig: METHIMAZOLE 5 MG TABLET Take 1 tablet by mouth once d* Problem List As Of Date 06/01/2020 Noted Resolved Unspecified symptom associated with female azalia*10/29/2008 11/16/2012 Dyspareunia [[id number]] 10/29/2008 09/27/2015 More... Abnormal uterine bleeding [N93.9] 11/16/2012 02/19/2014 Bulky or enlarged uterus [N85.2] 11/16/2012 02/19/2014 Graves disease [E05.00] 02/21/2016 More... Elevated blood pressure reading without diagnos*02/17/2019 Prescriptions ordered this encounter Disp Refills Start End METHIMAZOLE 5 MG TABLET 90 t* 3 06/01/2020 Route: ORAL Sig: Take 1 tablet by mouth once daily. Medications Discontinued During This Encounter Prescriptions - metHIMazole (TAPAZOLE) 5 mg tablet (Discontinued) Take 1 tablet by mouth every 48 hours. Encounter Status:Closed by ROSEANN MALIK RN on 06/01/20 [facility] 04-19-2020 [facility] Telephone (MEPRAD) NERIS MORTON ( ) 1970 F Date Time Provider Department 04/19/20 LEONIDAS STARK During your visit today, we recorded the following information about you: Leonidas Stark MD, 04/19/2020 11:17 AM Signed Please tell her hyperthyroidism has recurred, albeit mild. Restart methimazole at 5 mg every other day, recheck labs in 05/2020 (order in [facility]). The following approved medication requests have been transmitted electronically. Signed Prescriptions Disp Refills metHIMazole (TAPAZOLE) 5 mg tablet 45 tablet 3 Sig: Take 1 tablet by mouth every 48 hours. TIAN: No Authorizing Provider: LEONIDAS STARK MD Jennifer Sipsock RN 04/20/2020 10:01 AM Signed Notified patient of Dr Stark's message. Patient verbalized understanding. Encounter closed. Allergies As of Date: 04/19/2020 (No Known Allergies) Date Reviewed: 02/15/2019 Reviewed by: Luiz Paz Ma - Fully Assessed Reason for Visit: Results [95] Visit Diagnosis:Graves disease [E05.00] Order(s):metHIMazole (TAPAZOLE) 5 mg tabletTake 1 tablet by mouth every 48 hours.Disp: 45 tabletRfl: 3 TSH BLD [SQTSH] Order #: [id number] FUTURE T4 FREE/FREE THYROX [SQFT4] Order #: [id number] FUTURE Prescriptions as of 04/19/2020 Sig: METHIMAZOLE 5 MG TABLET Take 1 tablet by mouth every * Problem List As Of Date 04/19/2020 Noted Resolved Unspecified symptom associated with female azalia*10/29/2008 11/16/2012 Dyspareunia [[id number]] 10/29/2008 09/27/2015 More... Abnormal uterine bleeding [N93.9] 11/16/2012 02/19/2014 Bulky or enlarged uterus [N85.2] 11/16/2012 02/19/2014 Graves disease [E05.00] 02/21/2016 More... Elevated blood pressure reading without diagnos*02/17/2019 Prescriptions ordered this encounter Disp Refills Start End METHIMAZOLE 5 MG TABLET 45 t* 3 04/19/2020 Route: ORAL Sig: Take 1 tablet by mouth every 48 hours. Encounter Status:Closed by ROSEANN MALIK RN on 04/20/20 [facility] Vital Signs Date Time Vital Sign Value Performing Clinician Bhupinder coronado 12-18-2024 14:42-0400 Body height 167.6 cm Flor Eason MD Work Phone: [facility] 12-18-2024 14:42-0400 Body mass index (BMI) [Ratio] 29.38 kg/m2 Folr Eason MD Work Phone: [facility] 12-18-2024 14:42-0400 Body weight 82.56 kg Flor Eason MD Work Phone: [facility] 12-18-2024 14:42-0400 Diastolic blood pressure 84 mm[Hg] Flor Eason MD Work Phone: [facility] 12-18-2024 14:42-0400 Systolic blood pressure 142 mm[Hg] Flor Eason MD Work Phone: [facility] 08-12-2024 11:04-0500 Diastolic blood pressure 86 mm[Hg] Leonidas Stark MD Work Phone: [facility] 08-12-2024 11:04-0500 Systolic blood pressure 146 mm[Hg] Leonidas Stark MD Work Phone: [facility] 08-12-2024 10:51-0500 Body height 167.5 cm Leonidas Tapia Work Phone: [facility] 08-12-2024 10:51-0500 Body mass index (BMI) [Ratio] 28.83 kg/m2 Leonidas Stark MD Work Phone: [facility] 08-12-2024 10:51-0500 Body weight 80.9 kg Leonidas Tapia Work Phone: [facility] 08-12-2024 10:51-0500 Heart rate 83 /min Leonidas Tapia Work Phone: [facility] 08-12-2024 10:51-0500 SaO2% (BldA) [Mass fraction] 99 % Leonidas Stark MD Work Phone: [facility] Encounters Encounter Date Encounter Type Care Provider Facility Start: 12-25-2024 End: 12-25-2024 ambulatory No Primary Care Physician [facility] Work Phone: Start: 12-25-2024 End: 12-25-[address] Flor Eason MD -Outpatient Breast Imaging Work Phone: Start: 12-25-2024 End: 12-25-2024 ambulatory Flor Eason Facility:[facility] Start: 12-18-2024 End: 12-18-2024 ambulatory FLOR EASON Facility:[facility] Start: 12-18-2024 End: 12-18-2024 Patient encounter procedure Flor Eason MD Work Phone: OB/Gynecology Comment on above: Encounter for gyneco logical examination (general) (routine) without abnormal findings (Primary Dx); Encounter for screening for human papillomavirus (HPV); Pap smear for cervical cancer screening; Encounter for screening mammogram for breast cancer Start: 12-18-2024 End: 12-18-2024 Patient encounter status Flor Eason MD Work Phone: [facility] Start: 08-21-2024 End: 09-04-2024 Telephone encounter Leonidas Stark MD Work Phone: Endocrinology Comment on above: Results ([facility]) Start: 08-13-2024 End: 08-14-2024 ambulatory Leonidas Stark MD Work Phone: Endocrinology Comment on above: RESULTS Start: 08-13-2024 End: 08-19-2024 Telephone encounter Leonidas Stark MD Work Phone: Endocrinology Comment on above: Results ([facility]) Start: 08-12-2024 End: 08-12-2024 ambulatory LEONIDAS STARK Facility:[facility] Start: 08-12-2024 End: 08-12-2024 Patient encounter procedure Leonidas Stark MD Work Phone: Endocrinology Comment on above: Graves disease (Prim steffanie Dx); Elevated blood pressure reading without diagnosis of hypertension Start: 08-12-2024 End: 08-12-2024 ambulatory No Primary Care Physician Facility:[facility] Start: 07-09-2024 End: 07-09-2024 ambulatory Milo Yadav [place] [place]: 06-20-2024 End: 06-20-2024 ambulatory Tank Retana Facility:[facility] Start: 02-12-2024 End: 02-12-2024 ambulatory Ewelina Gómez [place] Start: 01-08-2024 Telephone encounter Leonidas Stark MD Work Phone: Endocrinology Comment on above: Results ([facility]) Start: 01-06-2024 End: 01-06-2024 ambulatory [facility] Work Phone: Start: 01-06-2024 End: 01-06-2024 Patient encounter procedure [facility] Work Phone: Start: 01-06-2024 End: 01-06-2024 ambulatory Leonidas Stark Facility:[facility] Start: 12-25-2023 Refill Meng reynoso APRN.CNP Work Phone: Endocrinology Comment on above: Refill Request Start: 12-25-2023 Refill Leonidas han MD Work Phone: Endocrinology Comment on above: Refill Request Start: 12-13-2023 ambulatory Leonidas han MD Work Phone: Endocrinology Comment on above: Thyroid Start: 12-11-2023 ambulatory Leonidas han MD Work Phone: Endocrinology Comment on above: BLOOD WORK Start: 12-11-2023 Telephone encounter Leonidas Stark MD Work Phone: Endocrinology Comment on above: Outside Lab Results ([facility]) Start: 12-09-2023 End: 12-09-2023 ambulatory [facility] Work Phone: Start: 12-09-2023 End: 12-09-2023 Patient encounter procedure [facility] Work Phone: Start: 11-20-2023 ambulatory [facility] Provider Mindi shafer Comment on above: CHANGES Start: 11-20-2023 E-mail encounter fro m caregiver [facility] Provider NGHIA PINA Start: 11-17-2023 Orders Only Loenidas han MD Work Phone: Endocrinology Comment on above: Outside Lab Results ([facility] ) Start: 11-16-2023 End: 11-16-2023 ambulatory [facility] Work Phone: Start: 11-16-2023 End: 11-16-2023 Patient encounter procedure [facility] Work Phone: Start: 10-14-2023 End: 10-14-2023 ambulatory DO Ewelina Herreraer Work Phone: [facility] Work Phone: Start: 10-14-2023 End: 10-14-2023 Patient encounter procedure DO Ewelina Gómez Work Phone: [facility] Work Phone: Start: 07-28-2023 ambulatory Leonidas han MD Work Phone: Endocrinology Comment on above: Thyroid Start: 07-17-2023 Telephone encounter Leonidas Stark MD Work Phone: Endocrinology Comment on above: Outside Lab Results ([facility]- tsh and t4) Start: 07-15-2023 End: 07-15-2023 Patient encounter procedure DO Ewelina Gómez Work Phone: [facility] Work Phone: Start: 07-13-2023 Non-patient / Non-visit DO Lazarus Gómez Work Phone: [facility] Start: 07-13-2023 End: 07-13-2023 Patient encounter procedure DO Ewelina Gómez Work Phone: [facility], [facility] Work Phone: Start: 06-14-2023 Orders Only Meng reynoso MANUFACTURING GROUP LEADER.COOKING INSTRUCTOR Work Phone: Endocrinology Comment on above: Outside Lab Results ([facility] ) Start: 06-08-2023 End: 06-08-2023 ambulatory [facility] Work Phone: Start: 06-08-2023 End: 06-08-2023 Patient encounter procedure [facility] Work Phone: Start: 06-05-2023 ambulatory Leonidas han MD Work Phone: Endocrinology Comment on above: bw. / appt. Start: 03-28-2023 ambulatory Meng reynoso MANUFACTURING GROUP LEADER.COOKING INSTRUCTOR Work Phone: [facility] Start: 03-28-2023 Patient encounter procedure Meng Ngo MANUFACTURING GROUP LEADER.COOKING INSTRUCTOR Work Phone: Endocrinology Comment on above: referral Start: 01-12-2023 Telephone encounter Meng trent MANUFACTURING GROUP LEADER.COOKING INSTRUCTOR Work Phone: Endocrinology Comment on above: Outside Lab Results ([facility]) Start: 11-30-2022 Telephone encounter Meng barberc MANUFACTURING GROUP LEADER.COOKING INSTRUCTOR Work Phone: Endocrinology Comment on above: Outside Lab Results ([facility] ) Start: 11-29-2022 ambulatory Meng reynoso MANUFACTURING GROUP LEADER.COOKING INSTRUCTOR Work Phone: Endocrinology Comment on above: Bloodwork Start: 11-25-2022 End: 11-25-2022 ambulatory [facility] Work Phone: Start: 11-25-2022 End: 11-25-2022 Patient encounter procedure [facility] Procedures Date Procedure Procedure Detail Performing Clinician Start: 12-25-2024 Screening mammography N o Primary Care Physician Start: 08-12-2024 ALDOSTERONE [facility] Provid er Start: 08-12-2024 Comprehensive metabo lic 2000 panel - Serum or Plasma [facility] Provider Start: 08-12-2024 FREE T4 + TSH [facility] Provi patrica Start: 01-06-2024 FREE T4 + TSH [facility] Provi patrica Start: 12-09-2023 FREE T4 + TSH [facility] Provi patrica Start: 11-16-2023 THYROID PANEL - EXTERNAL [facility] Provider Start: 07-13-2023 CT angiography of co ronary arteries DO Ewelina Gómez Work Phone: Start: 06-08-2023 ALT/SGPT BLOOD (EU,FV,HL,CARRIE,MM,SP) [facility] Provider Start: 06-08-2023 AST/SGOT BLOOD (EU,FV,HL,CARRIE,MM,SP) [facility] Provider Start: 06-08-2023 THYROID PANEL - EXTERNAL [facility] Provider Start: 01-09-2023 T4/THYROXINE BLOOD [facility] Provider Start: 01-09-2023 Thyrotropin [Units/v olume] in Serum or Plasma [facility] Provider Start: 01-24-2018 Mammography Meng barberc MANUFACTURING GROUP LEADER.COOKING INSTRUCTOR Work Phone: Plan of Treatment Date Care Activity Detail Author Start: 08-12-2027 Diabetes Screening Diabetes Screenmilli g [facility] Start: 11-25-2025 DIABETES SCREEN DIABETES SCREEN [facility] Start: 11-25-2025 Diabetes Screening Diabetes Screenin g [facility] Start: 10-17-2024 End: 10-17-2024 Patient encounter procedure 10/17/2024 2:40 PM EST Office Visit OB/Gynecology [address] [place] [address] Flor Eason MD [address] [place] [id number] new annual OB/Gynecology Comment on above: new annual Start: 06-09-2024 Covid-19 Vaccine () Covid-19 Vaccine () [facility] Start: 06-09-2024 [facility] Start: 10-09-2023 Depression Assessment Depression Ass essment [facility] Start: 06-09-2023 Covid-19 Vaccine () Covid-19 Vaccine () [facility] Start: 06-09-2023 Influenza vaccination [facility] Start: 03-15-2023 End: 05-15-2023 Thyrotropin [Units/volume] in Serum or Plasma TSH BLD Lab Routine Graves disease Expected: 03/15/2023 (Approximate), Expires: 05/15/2023 [facility] Work Phone: Comment on above: Expected: 03/15/2023 (Approximate), Expires: 05/15/2023 Start: 03-15-2023 End: 05-15-2023 Thyroxine (T4) free [Mass/volume] in Serum or Plasma T4 FREE/FREE THYROX Lab Routine Graves disease Expected: 03/15/2023 (Approximate), Expires: 05/15/2023 [facility] Work Phone: Comment on above: Expected: 03/15/2023 (Approximate), Expires: 05/15/2023 Start: 03-15-2023 End: 05-15-2023 Triiodothyronine (T3) Free [Mass/volume] in Serum or Plasma T3 FREE BLD Lab Routine Graves disease Expected: 03/15/2023 (Approximate), Expires: 05/15/2023 [facility] Work Phone: Comment on above: Expected: 03/15/2023 (Approximate), Expires: 05/15/2023 Start: 01-24-2023 HPV TESTING HPV TESTING [facility] Start: 01-24-2023 PAP TESTING PAP TESTING [facility] Start: 01-24-2023 Screening for malign ant neoplasm of cervix [facility] Start: 12-29-2022 End: 02-28-2023 CBC panel - Blood by Automated count CBC Lab Routine Graves disease Expected: 12/29/2022 (Approximate), Expires: 02/28/2023 [facility] Work Phone: Comment on above: Expected: 12/29/2022 (Approximate), Expires: 02/28/2023 Start: 12-29-2022 End: 02-28-2023 Thyrotropin [Units/volume] in Serum or Plasma TSH BLD Lab Routine Graves disease Expected: 12/29/2022 (Approximate), Expires: 02/28/2023 [facility] Work Phone: Comment on above: Expected: 12/29/2022 (Approximate), Expires: 02/28/2023 Start: 12-29-2022 End: 02-28-2023 Thyroxine (T4) free [Mass/volume] in Serum or Plasma T4 FREE/FREE THYROX Lab Routine Graves disease Expected: 12/29/2022 (Approximate), Expires: 02/28/2023 [facility] Work Phone: Comment on above: Expected: 12/29/2022 (Approximate), Expires: 02/28/2023 Start: 12-29-2022 End: 02-28-2023 Triiodothyronine (T3) Free [Mass/volume] in Serum or Plasma T3 FREE BLD Lab Routine Graves disease Expected: 12/29/2022 (Approximate), Expires: 02/28/2023 [facility] Work Phone: Comment on above: Expected: 12/29/2022 (Approximate), Expires: 02/28/2023 Start: 10-09-2022 DEPRESSION ASSESSMENT DEPRESSION ASS ESSMENT [facility] Start: 04-12-2021 COVID-19 VACCINE (3 - Booster for Moderna series) COVID-19 VACCINE (3 - Booster for Moderna series) [facility] Start: 04-12-2021 COVID-19 VACCINE (3 - Moderna series) COVID-19 VACCINE (3 - Moderna series) [facility] Start: 2019 Pneumococcal Vaccine : 50+ (1 of 1 - PCV) Pneumococcal Vaccine: 50+ (1 of 1 - PCV) [facility] Start: 2019 SHINGRIX VACCINE (1 of 2) THORNE GRIX VACCINE (1 of 2) [facility] Start: 01-24-2019 Mammography [facility] Start: 01-24-2019 Screening for malign ant neoplasm of breast Mammogram Screening [facility] Start: 2014 COLOGUARD (FIT-DNA) COLOGUARD (FIT-D NA) [facility] Start: 2014 Colonoscopy COLONOSCOPY [facility] Start: 2014 COLORECTAL CANCER SCREENING COLORECTAL CANCER SCREENING [facility] Start: [address] COLONOGRAPHY [facility] Start: 2014 DIABETES SCREEN DIABETES SCREEN [facility] Start: 2014 FECAL OCCULT BLOOD FECAL OCCULT BLOO D [facility] Start: 2014 Lipid 1996 panel - S kylie or Plasma Lipid Screening [facility] Start: 2014 Lipid panel Lipid Screening [facility] Start: 2014 LIPID SCREEN LIPID SCREEN [facility] Start: 2014 Screening for malign ant neoplasm of colon [facility] Start: 2014 SIGMOIDOSCOPY SIGMOIDOSCOPY [facility] Start: 1988 Hepatitis B Vaccine (1 of 3 - 19+ 3-dose series) Hepatitis B Vaccine (1 of 3 - 19+ 3-dose series) [facility] Start: 1988 Urine microalbumin profile [facility] Start: 1987 Anxiety Screening Anxiety Screening [facility] Start: 1987 Depression Screening Depression Scre ening [facility] Start: 1987 HEPATITIS C SCREENING HEPATITIS C [facility] Start: 1987 Hepatitis C screening Hepatitis C [facility] Start: 1987 HIV SCREENING HIV SCREENING [facility] Start: 1987 HIV screening HIV Screening [facility] Start: 1969 HEPATITIS B (1 of 3 - 3-dose series) HEPATITIS B (1 of 3 - 3-dose series) [facility] Start: 1969 Hepatitis B Vaccine (1 of 3 - 3-dose series) Hepatitis B Vaccine (1 of 3 - 3-dose series) [facility] End: 01-17-2026 DBT Breast - bilateral screening RADHA SCREENING [facility] Routine Encounter for gynecological examination (general) (routine) without abnormal findings Encounter for screening mammogram for breast cancer 1 Occurrences starting 12/18/2024 until 01/17/2026 [facility] Work Phone: Comment on above: 1 Occurrences starti ng 12/18/2024 until 01/17/2026 PAP TEST PAP TEST Lab [facility] Encounter for gynecological examination (general) (routine) without abnormal findings Encounter for screening for human papillomavirus (HPV) Pap smear for cervical cancer screening 12/18/2024 3:27 PM EDT [facility] Immunizations Immunization Date Immunization Notes Care Provider Fa alejandro 08-21-2022 influenza virus vaccine, unspecified formulation Leonidas Stark MD Work Phone: [facility] 09-15-2021 influenza, injectabl e, quadrivalent, contains preservative Meng Ngo APRN.CNP Work Phone: [facility] Payers Date Payer Category Payer Self-pay [id number] 2022 Private Health Insurance [employer] RE [id number] 2022 [facility] [id number] 2022-Present [phone] [address] [place] [address] PPO [id number] 2022 Unknown [id number] Unknown [facility] *DO NOT USE* [id number] Unknown [facility] PACKAGE PLAN 0 [id number] Unknown [facility] PACKAGE PLAN [id number] Unknown [id number] Unknown [id number] Unknown [id number] Unknown [id number] Unknown [id number] Unknown [id number] Unknown [id number] Unknown [id number] Social History Date Type Detail Facility Start: 08-04-2011 End: 07-03-2022 Tobacco smoking status NHIS Never smoked tobacco [facility] Work Phone: Start: 08-04-2011 Tobacco use and exposure Smokeless tobacco non-user [facility] Work Phone: Start: 11-15-2022 End: 12-18-2024 Alcohol intake Current non-drinker of alcohol (finding) [facility] Start: 1970 Sex Assigned At Not on file [facility] Start: 07-03-2022 End: 07-03-2022 Tobacco smoking status SCIS Unknown if ever smoked [facility] Start: 1970 Sex Assigned At Female W [facility] Start: 11-15-2022 End: 10-04-2023 History of Social function [facility] Start: 11-15-2022 End: 10-04-2023 Tobacco use panel [facility] Work Phone: National Score (1-100), lower number is lower risk 53 [facility] Start: 01-01-2025 Sex Female (finding) [facility] [place] Functional Status Date Assessment Result Facility 05-13-2015 Are you deaf, or do you have serious difficulty hearing No 05/13/2015 10:22 AM EDT Crissy Simon LPN No [facility] 05-13-2015 Are you blind, or do you have serious difficulty seeing, even when wearing glasses No 05/13/2015 10:22 AM EDT Crissy Simon LPN No [facility] 05-13-2015 Do you have serious difficulty walking or climbing stairs No 05/13/2015 10:22 AM EDT Crissy Simon LPN No [facility] 05-13-2015 Do you have difficul ty dressing or bathing No 05/13/2015 10:22 AM EDT Crissy Simon LPN No [facility] 05-13-2015 Because of a physica l, mental, or emotional condition, do you have difficulty doing errands alone such as visiting a physician's office or shopping No 05/13/2015 10:22 AM EDT Crissy Simon LPN No [facility] Mental Status Date Assessment Result Facility 05-13-2015 Because of a physica l, mental, or emotional condition, do you have serious difficulty concentrating, remembering, or making decisions No 05/13/2015 10:22 AM EDT Crissy Simon LPN No [facility] Clinical Notes 11-16-2012 to 12-18-2024 Flor Eason MD - 12/18/2024 2:36 PM EDTTelephone Encounter - Margarita Miller MA - 08/21/2024 11:14 AM ESTTelephone Encounter - Margarita Miller MA - 08/21/2024 11:14 AM ESTPatient Instructions Note Date & Type Note Facility 12-18-2024 Note HNO ID: [id number] Author: FLOR EASON MD Service: ? Author Type: Physician Type: Progress Notes Filed: 12/18/2024 15:10 Note Text: Neris is a 54 year old who presents for an annual gynecologic exam without complaints. SOme wt gain. Stress Postmenopausal: LMP around age 49 HRT use: No. Still get period: No Menopause symptoms: Hot flashes- not disruptive Time with current partner: 34 years control frequency: Never HPV vaccine: No; Last pap smear: 2017 History of abnormal pap: No, all prior PAP smears have been normal Last mammogram: 2022 normal History of abnormal mammogram: No OB History Gravida4 Para3 Term3 Preterm0 AB1 Living3 SAB1 IAB0 Ectopic0 Multiple0 Live Births0 [employer] History LMP: 12/07/2018 (Within Weeks), Having periods Age at Menarche: Age at First : Age at Menopause: Peach [employer]er History Comments: Sexual Activity: Yes; Male Contraception: Tubal Ligation PAST MEDICAL HISTORY Diagnosis Date Abnormal uterine bleeding 11/16/2012 Hypothyroidism Postablative hypothyroidism 07/26/201001/2016 - remains off levothyroxine (stopped 12/07/2015). PAST SURGICAL HISTORY Procedure Laterality Date LIG/TRNSXJ FLP TUBE ABDL/VAG APPR UNI/BI Tubal ligation TONSILLECTOMY PRIMARY/SECONDARY Tonsillectomy FAMILY HISTORY Problem Relation Age of Onset Diabetes Father Heart Maternal Grandmother Prostate Cancer Maternal Grandfather Diabetes Son Diabetes Paternal Aunt SOCIAL HISTORY Social History Tobacco Use Smoking status: Never Smokeless tobacco: Never Vaping Use Vaping status: Never Used Substance Use Topics Alcohol use: No Drug use: No REVIEW OF SYSTEMS Abdomen: No abdominal pain, nausea, vomiting, diarrhea, or constipation. No bloating, early satiety, indigestion, or increased flatulence. Bladder: No dysuria, gross hematuria, urinary frequency, urinary urgency, or incontinence Breast: No breast lumps, nipple d/c, overlying skin changes, redness or skin retraction Allergies and current medication updated:Yes SENSITIVE EXAM: The sensitive examination was discussed with the Patient or Patient's Authorized Water Ski Assembler. As applicable, any other physician, advance practice provider, medical student, or other health professional student that will be observing or involved in the sensitive examination for educational or training purposes was discussed with the Patient or Authorized Water Ski Assembler. The Patient or Authorized Water Ski Assembler has agreed to proceed with the sensitive examination. (Sensitive examination includes inspection and/or palpation of the breasts, pelvis, prostate and anorectal regions). EXAM: BP 142/84 Ht 5' 6 (1.68m) Wt 182 lb (82.6kg) LMP 12/07/2018 BMI 29.39 kg/(m2). GENERAL: pleasant, female in no apparent distress HEENT: Normocephalic, atraumatic, mucus membranes moist, and no lesions NECK: Supple, full range of motion, no adenopathy, and thyroid normal DERMATOLOGY: Normal, without lesions, non-icteric, and non-hirsute BREAST: soft, non-tender, symmetric, no dominant mass, normal nipple-areolar complex, no lymphadenopathy, and no nipple discharge CHEST: Normal inspiratory effort ABDOMEN: soft, non-tender, and no masses PELVIC: external genitalia normal, normal Bartholin's glands, urethra, [place]'s glands, no vulvar lesions, no cervical lesions, good vaginal support, physiologic discharge present, normal appearing perineal body and perianal region BIMANUAL: uterus normal size, shape and consistency, no adnexal masses, and non-tender RECTOVAGINAL: deferred. NEURO: alert and oriented x3,exam grossly non-focal EXTREMITIES: normal ASSESSMENT/PLAN: 1) Health maintenance: Pap done with HPV. Mammogram ordered Colon cancer screening: plans cologard 2) Follow up one year or sooner as needed Flor Eason MD [facility] 12-18-2024 History of Presen t illness Narrative Neris is a 54 year old who presents for an annual gynecologic exam without complaints. SOme wt gain. Stress Postmenopausal: LMP around age 49 HRT use: No. Still get period: No Menopause symptoms: Hot flashes- not disruptive Time with current partner: 34 years control frequency: Never HPV vaccine: No; Last pap smear: 2017 History of abnormal pap: No, all prior PAP smears have been normal Last mammogram: 2022 normal History of abnormal mammogram: No OB History Gravida4 Para3 Term3 Preterm0 AB1 Living3 SAB1 IAB0 Ectopic0 Multiple0 Live Births0 [place] [employer] History LMP: 12/07/2018 (Within Weeks), Having periods Age at Menarche: Age at First : Age at Menopause: [place] [employer]er History Comments: Sexual Activity: Yes; Male Contraception: Tubal Ligation PAST MEDICAL HISTORY Diagnosis Date Abnormal uterine bleeding 11/16/2012 Hypothyroidism Postablative hypothyroidism 07/26/201001/2016 - remains off levothyroxine (stopped 12/07/2015). PAST SURGICAL HISTORY Procedure Laterality Date LIG/TRNSXJ FLP TUBE ABDL/VAG APPR UNI/BI Tubal ligation TONSILLECTOMY PRIMARY/SECONDARY <AGE 12 Tonsillectomy FAMILY HISTORY Problem Relation Age of Onset Diabetes Father Heart Maternal Grandmother Prostate Cancer Maternal Grandfather Diabetes Son Diabetes Paternal Aunt SOCIAL HISTORY Social History Tobacco Use Smoking status: Never Smokeless tobacco: Never Vaping Use Vaping status: Never Used Substance Use Topics Alcohol use: No Drug use: No REVIEW OF SYSTEMS Abdomen: No abdominal pain, nausea, vomiting, diarrhea, or constipation. No bloating, early satiety, indigestion, or increased flatulence. Bladder: No dysuria, gross hematuria, urinary frequency, urinary urgency, or incontinence Breast: No breast lumps, nipple d/c, overlying skin changes, redness or skin retraction Allergies and current medication updated:Yes SENSITIVE EXAM: The sensitive examination was discussed with the Patient or Patient's Authorized Water Ski Assembler. As applicable, any other physician, advance practice provider, medical student, or other health professional student that will be observing or involved in the sensitive examination for educational or training purposes was discussed with the Patient or Authorized Water Ski Assembler. The Patient or Authorized Water Ski Assembler has agreed to proceed with the sensitive examination. (Sensitive examination includes inspection and/or palpation of the breasts, pelvis, prostate and anorectal regions). EXAM: BP 142/84 Ht 5' 6 (1.68m) Wt 182 lb (82.6kg) LMP 12/07/2018 BMI 29.39 kg/(m^2). GENERAL: pleasant, female in no apparent distress HEENT: Normocephalic, atraumatic, mucus membranes moist, and no lesions NECK: Supple, full range of motion, no adenopathy, and thyroid normal DERMATOLOGY: Normal, without lesions, non-icteric, and non-hirsute BREAST: soft, non-tender, symmetric, no dominant mass, normal nipple-areolar complex, no lymphadenopathy, and no nipple discharge CHEST: Normal inspiratory effort ABDOMEN: soft, non-tender, and no masses PELVIC: external genitalia normal, normal Bartholin's glands, urethra, [place]'s glands, no vulvar lesions, no cervical lesions, good vaginal support, physiologic discharge present, normal appearing perineal body and perianal region BIMANUAL: uterus normal size, shape and consistency, no adnexal masses, and non-tender RECTOVAGINAL: deferred. NEURO: alert and oriented x3,exam grossly non-focal EXTREMITIES: normal ASSESSMENT/PLAN: 1) Health maintenance: Pap done with HPV. Mammogram ordered Colon cancer screening: plans cologard 2) Follow up one year or sooner as needed Flor Eason MD documented in this encounter [facility] 08-21-2024 Telephone encount er Note Received lab results from [facility]. Entered into [employer]. Placed on docs desk for review. Please advise, thanks. [facility] 08-21-2024 Miscellaneous Notes Formattin g of this note might be different from the original. Received lab results from [facility]. Entered into [employer]. Placed on docs desk for review. Please advise, thanks. documented in this encounter [facility] 08-13-2024 Telephone encount er Note Received lab results from [facility]. Entered into [employer]. Placed on docs desk for review. Please advise, thanks. [facility] 08-13-2024 Miscellaneous Notes Formattin g of this note might be different from the original. Received lab results from [facility]. Entered into [employer]. Placed on docs desk for review. Please advise, thanks. documented in this encounter [facility] 08-12-2024 Instructions Leonidas Stark MD - 08/12/2024 11:01 AM EST Get labs done at [facility]. Will call with results. Check BP in the community, goal BP less than 130/80 mm Hg. See me again in 12 months. documented in this encounter [facility] 08-12-2024 Note HNO ID: [id number] Author: LEONIDAS STARK MD Service: ? Author Type: Physician Type: Progress Notes Filed: 08/12/2024 11:10 Note Text: Follow-up 53 year-old female with history of Graves disease which had recurred despite [id number] hypothyroidism. Also has had elevated blood pressure without diagnosis of hypertension. Radioiodine treatment was in 2009. She had been euthyroid again in 2011 and 2012, then TSH became suppressed again despite lower and lower levothyroxine doses. Says is exercising, feeling well. Says BP checks have been fine. No periods. Restarted methimazole in 2019. Failed remission in 09/2023. Current Outpatient Medications on File Prior to Visit Medication Sig methIMAzole (TAPAZOLE) 5 mg tablet Take 1 tablet by mouth once daily. ALLERGIES No Known Allergies Review of systems: [...] of review of systems was unremarkable. BP 164/107 Pulse 83 Ht 167.5 cm (5' 5.95) Wt 80.9 kg (178 lb 5.6 oz) LMP 12/07/2018 (Within Weeks) SpO2 99% BMI 28.83 kg/m? General appearance: Well-appearing, overweight (BMI greater than 25) female, alert, in no acute distress, well-hydrated, well nourished. Weight down 2 pounds since 09/2023. BP elevated, pulse regular. Repeat BP 146/86 Skin: Skin color, texture, turgor normal, no [...] grossly intact. Latest Reference Range AND Units 01/06/24 00:00 TSH 0.358 - 3.74 IU/ml 1.24 (E) T4,FREE (DIRECT) 0.76 - 1.46 0.83 (E) (E): External lab result IMPRESSION: Graves disease - check TFTs on the current methimazole dose Elevated blood pressure without diagnosis of hypertension - check BP in the community, stressed goal BP less than 130/80 mm Hg. Check CMP, joann/renin ratio. PLAN: Check BP in the community, stressed goal BP less than 130/80 mm Hg. Continue weight loss efforts Check TSH, free T4, CMP, joann/renin at [facility] See me again in 12 months Leonidas Stark MD I spent a total of 30 minutes on the date of service which included preparing to see the patient, [id number] patient care, completing clinical documentation, performing a medically appropriate examination, counseling and educating the patient/family/caregiver and ordering medications, tests, or procedures. [facility] 08-12-2024 History of Presen t illness Narrative Follow-up 53 year-old female with history of Graves disease which had recurred despite [id number] hypothyroidism. Also has had elevated blood pressure without diagnosis of hypertension. Radioiodine treatment was in 2009. She had been euthyroid again in 2011 and 2012, then TSH became suppressed again despite lower and lower levothyroxine doses. Says is exercising, feeling well. Says BP checks have been fine. No periods. Restarted methimazole in 2019. Failed remission in 09/2023. Current Outpatient Medications on File Prior to Visit Medication Sig methIMAzole (TAPAZOLE) 5 mg tablet Take 1 tablet by mouth once daily. ALLERGIES No Known Allergies Review of systems: [...] of review of systems was unremarkable. BP 164/107 Pulse 83 Ht 167.5 cm (5' 5.95) Wt 80.9 kg (178 lb 5.6 oz) LMP 12/07/2018 (Within Weeks) SpO2 99% BMI 28.83 kg/m General appearance: Well-appearing, overweight (BMI greater than 25) female, alert, in no acute distress, well-hydrated, well nourished. Weight down 2 pounds since 09/2023. BP elevated, pulse regular. Repeat BP 146/86 Skin: Skin color, texture, turgor normal, no [...] normal. Sensation grossly intact. Latest Reference Range & Units 01/06/24 00:00 TSH 0.358 - 3.74 IU/ml 1.24 (E) T4,FREE (DIRECT) 0.76 - 1.46 0.83 (E) (E): External lab result IMPRESSION: Graves disease - check TFTs on the current methimazole dose Elevated blood pressure without diagnosis of hypertension - check BP in the community, stressed goal BP less than 130/80 mm Hg. Check CMP, joann/renin ratio. PLAN: Check BP in the community, stressed goal BP less than 130/80 mm Hg. Continue weight loss efforts Check TSH, free T4, CMP, joann/renin at [facility] See me again in 12 months Leonidas Stark MD I spent a total of 30 minutes on the date of service which included preparing to see the patient, [id number] patient care, completing clinical documentation, performing a medically appropriate examination, counseling and educating the patient/family/caregiver and ordering medications, tests, or procedures. documented in this encounter [facility] 01-09-2024 Miscellaneous Notes Formattin g of this note might be different from the original. Reviewed. Labs are stable. [facility] message sent to patient. Received lab results from [facility]. Entered into [employer]. Placed on docs desk for review. Please advise, thanks. documented in this encounter [facility] 12-13-2023 Miscellaneous Notes Formattin g of this note might be different from the original. Notified patient of Dr Stark's message. Patient verbalized understanding and all questions were answered. Encounter closed. Call and tell to decrease methimazole from 5 mg 1.5 pills qd, to 5 mg qd. Check TSH again in 2-3 weeks, sent lab letter for her to print via Better[employer]. Thanks. Received lab results from [facility]. Entered into [employer]. Placed on docs desk for review. Please advise, thanks. documented in this encounter [facility] 12-13-2023 Miscellaneous Notes Formattin g of this note might be different from the original. Called and spoke to the patient with the results. Closed documented in this encounter [facility] 12-13-2023 Miscellaneous Notes Formattin g of this note might be different from the original. Please advise. documented in this encounter [facility] 11-20-2023 Miscellaneous Notes Formattin g of this note might be different from the original. [employer] message sent CLOSED Call and tell that thyroid blood test looked improved, no new dose changes. Thanks. Repeat labs in 2-3 weeks, sent lab letter via [employer]. Received outside lab results from [facility] Placed in Dr. Stark's in box for review. In epic documented in this encounter [facility] 07-18-2023 Miscellaneous Notes Formattin g of this note might be different from the original. Reviewed. OUTSIDE LAB REPORT on desk for review ENTRY DATE: 07/17/2023 Patient: Neris Morton [facility]#: [id number] Age: [age] year old documented in this encounter [facility] 06-14-2023 Miscellaneous Notes Formattin g of this note might be different from the original. Reviewed. [employer] message sent to patient Received outside lab results from [facility]. Placed in Meng Gerald's in box for review. In epic. documented in this encounter [facility] 06-05-2023 Miscellaneous Notes Formattin g of this note might be different from the original. Please review. documented in this encounter [facility] 03-28-2023 Miscellaneous Notes Formattin g of this note might be different from the original. Faxed last two office notes to , [place] CLOSED documented in this encounter [facility] 01-13-2023 Miscellaneous Notes Formattin g of this note might be different from the original. Reviewed. message sent to patient. Thank you Received lab results from [facility]. Entered into [employer]. Placed on docs desk for review. Please advise, thanks. documented in this encounter [facility] 12-02-2022 Miscellaneous Notes Formattin g of this note might be different from the original. MAILED TO PATIENT CLOSED Labs reviewed. [facility] message sent to patient Please mail her new lab orders. Thank you Received outside lab results from [facility]. Placed in [employer]'s in box for review. documented in this encounter [facility] 11-16-2012 History of Past i llness Narrative Problem Noted Date Resolved Date Abnormal uterine bleeding 11/16/20122013 Bulky or enlarged uterus 11/16/2012 014 Unspecified symptom associated with female genit al organs 10/29/2008 11/16/2012 Dyspareunia 10/29/2008 09/27/2015 documented as of this encounter (statuses as of 11/29/2022) [facility] History of Past illness Narrative* Problem Noted Date Resolved Date Abnormal uterine bleeding 11/16/20122013 Bulky or enlarged uterus 11/16/2012 014 Unspecified symptom associated with female genit al organs 10/29/2008 11/16/2012 Dyspareunia 10/29/2008 09/27/2015 documented as of this encounter (statuses as of 12/02/2022) [facility] History of Past illness Narrative* Problem Noted Date Resolved Date Abnormal uterine bleeding 11/16/20122013 Bulky or enlarged uterus 11/16/2012 014 Unspecified symptom associated with female genit al organs 10/29/2008 11/16/2012 Dyspareunia 10/29/2008 09/27/2015 documented as of this encounter (statuses as of 01/14/2023) [facility] History of Past illness Narrative* Problem Noted Date Resolved Date Abnormal uterine bleeding 11/16/20122013 Bulky or enlarged uterus 11/16/2012 014 Unspecified symptom associated with female genit al organs 10/29/2008 11/16/2012 Dyspareunia 10/29/2008 09/27/2015 documented as of this encounter (statuses as of 03/29/2023) [facility] History of Past illness Narrative* Problem Noted Date Diagnosed Date Resolved Date Abnormal uterine bleeding 11/16/2012 Bulky or enlarged uterus 11/16/2012 Unspecified symptom associat ed with female genital organs 10/29/2008 11/16/2012 Dyspareunia 10/29/2008 09/27/2015 documented as of this encounter (statuses as of 06/05/2023) [facility] History of Past illness Narrative* Problem Noted Date Diagnosed Date Resolved Date Abnormal uterine bleeding 11/16/2012 Bulky or enlarged uterus 11/16/2012 Unspecified symptom associat ed with female genital organs 10/29/2008 11/16/2012 Dyspareunia 10/29/2008 09/27/2015 documented as of this encounter (statuses as of 06/14/2023) [facility] History of Past illness Narrative* Problem Noted Date Diagnosed Date Resolved Date Abnormal uterine bleeding 11/16/2012 Bulky or enlarged uterus 11/16/2012 Unspecified symptom associat ed with female genital organs 10/29/2008 11/16/2012 Dyspareunia 10/29/2008 09/27/2015 documented as of this encounter (statuses as of 06/15/2023) [facility] History of Past illness Narrative* Problem Noted Date Diagnosed Date Resolved Date Abnormal uterine bleeding 11/16/2012 Bulky or enlarged uterus 11/16/2012 Unspecified symptom associat ed with female genital organs 10/29/2008 11/16/2012 Dyspareunia 10/29/2008 09/27/2015 documented as of this encounter (statuses as of 07/18/2023) [facility] History of Past illness Narrative* Problem Noted Date Diagnosed Date Resolved Date Abnormal uterine bleeding 11/16/2012 Bulky or enlarged uterus 11/16/2012 Unspecified symptom associat ed with female genital organs 10/29/2008 11/16/2012 Dyspareunia 10/29/2008 09/27/2015 documented as of this encounter (statuses as of 07/29/2023) [facility] History of Past illness Narrative* Problem Noted Date Diagnosed Date Resolved Date Abnormal uterine bleeding 11/16/2012 Bulky or enlarged uterus 11/16/2012 Unspecified symptom associat ed with female genital organs 10/29/2008 11/16/2012 Dyspareunia 10/29/2008 09/27/2015 documented as of this encounter (statuses as of 11/17/2023) [facility] History of Past illness Narrative* Problem Noted Date Diagnosed Date Resolved Date Abnormal uterine bleeding 11/16/2012 Bulky or enlarged uterus 11/16/2012 Unspecified symptom associat ed with female genital organs 10/29/2008 11/16/2012 Dyspareunia 10/29/2008 09/27/2015 documented as of this encounter (statuses as of 11/20/2023) [facility] History of Past illness Narrative* Problem Noted Date Diagnosed Date Resolved Date Abnormal uterine bleeding 11/16/2012 Bulky or enlarged uterus 11/16/2012 Unspecified symptom associat ed with female genital organs 10/29/2008 11/16/2012 Dyspareunia 10/29/2008 09/27/2015 documented as of this encounter (statuses as of 11/21/2023) [facility] History of Past illness Narrative* Problem Noted Date Diagnosed Date Resolved Date Abnormal uterine bleeding 11/16/2012 Bulky or enlarged uterus 11/16/2012 Unspecified symptom associat ed with female genital organs 10/29/2008 11/16/2012 Dyspareunia 10/29/2008 09/27/2015 documented as of this encounter (statuses as of 12/11/2023) [facility] History of Past illness Narrative* Problem Noted Date Diagnosed Date Resolved Date Abnormal uterine bleeding 11/16/2012 Bulky or enlarged uterus 11/16/2012 Unspecified symptom associat ed with female genital organs 10/29/2008 11/16/2012 Dyspareunia 10/29/2008 09/27/2015 documented as of this encounter (statuses as of 12/13/2023) [facility] History of Past illness Narrative* Problem Noted Date Diagnosed Date Resolved Date Abnormal uterine bleeding 11/16/2012 Bulky or enlarged uterus 11/16/2012 Unspecified symptom associat ed with female genital organs 10/29/2008 11/16/2012 Dyspareunia 10/29/2008 09/27/2015 documented as of this encounter (statuses as of 12/13/2023) [facility] History of Past illness Narrative* Problem Noted Date Diagnosed Date Resolved Date Abnormal uterine bleeding 11/16/2012 Bulky or enlarged uterus 11/16/2012 Unspecified symptom associat ed with female genital organs 10/29/2008 11/16/2012 Dyspareunia 10/29/2008 09/27/2015 documented as of this encounter (statuses as of 12/25/2023) [facility] History of Past illness Narrative* Problem Noted Date Diagnosed Date Resolved Date Abnormal uterine bleeding 11/16/2012 Bulky or enlarged uterus 11/16/2012 Unspecified symptom associat ed with female genital organs 10/29/2008 11/16/2012 Dyspareunia 10/29/2008 09/27/2015 documented as of this encounter (statuses as of 01/10/2024) [facility] note* Diagnosis 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 documented in this encounter [facility] noteNo assessment information availableWCleveland Clinic Medina [facility] Work Phone: Evaluation note* Diagnosis Graves disease- Primary Toxic diffuse goiter without mention of thyrotoxic crisis or storm documented in this encounter [facility] note* Diagnosis 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 documented in this encounter [facility] note* Diagnosis Graves disease- Primary Toxic diffuse goiter without mention of thyrotoxic crisis or storm Elevated blood pressure reading without diagnosis of hypertension documented in this encounter [facility] note* Diagnosis Encounter for gynecological examination (general) (routine) without abnormal findings- Primary Encounter for screening for human papillomavirus (HPV) Special screening examination for human papillomavirus (HPV) Pap smear for cervical cancer screening Screening for malignant neoplasm of the cervix Encounter for screening mammogram for breast cancer documented in this encounter [facility] for referral (narrative)No reason for referral information availableWCleveland Clinic Med[facility] Work Phone: Summary Purpose Family History Relationship Condition Age at Onset Recorded Date/T marva father Diabetes mellitus Unknown Advance Directives No Advanced Directives Records FoundNo Advanced Directives Records FoundNo Advanced Directives Records Found Chief Complaint and Reason for Visit Chief Complaint Family history of is chemic heart disease and other Family history of ischemic heart disease and other Chief Complaint Thyrotoxicosis, 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 Chief Complaint Admit Date SCREENING December 25, 2024 7:5 5am Additional Source Comments INFORMATION SOURCE (unrecogn ized section and content) DATE CREATED AUTHOR 08/03/2020 [facility] DATE CREATED AUTHOR AUTHOR'S ORGANIZ ATION 12/29/2024 [facility] DATE CREATED AUTHOR AUTHOR'S ORGANIZ ATION 01/02/2025 [facility] Source Comments (unrecognize d section and content) In the event this informatio n is protected by the Federal Confidentiality of Alcohol and Drug Abuse Patient Records regulations: The Federal rules restrict any use of the information to criminally investigate or prosecute any alcohol or drug abuse patient.[facility] the event this information is protected by the Federal Confidentiality of Alcohol and Drug Abuse Patient Records regulations: The Federal rules restrict any use of the information to criminally investigate or prosecute any alcohol or drug abuse patient.[facility] Hospital[facility] the event this information is protected by the Federal Confidentiality of Alcohol and Drug Abuse Patient Records regulations: The Federal rules restrict any use of the information to criminally investigate or prosecute any alcohol or drug abuse patient.[facility] Hospital[facility] the event this information is protected by the Federal Confidentiality of Alcohol and Drug Abuse Patient Records regulations: The Federal rules restrict any use of the information to criminally investigate or prosecute any alcohol or drug abuse patient.[facility] HospitalIn the event this information is protected by the Federal Confidentiality of Alcohol and Drug Abuse Patient Records regulations: The Federal rules restrict any use of the information to criminally investigate or prosecute any alcohol or drug abuse patient.[facility] HospitalIn the event this information is protected by the Federal Confidentiality of Alcohol and Drug Abuse Patient Records regulations: The Federal rules restrict any use of the information to criminally investigate or prosecute any alcohol or drug abuse patient.[facility] HospitalIn the event this information is protected by the Federal Confidentiality of Alcohol and Drug Abuse Patient Records regulations: The Federal rules restrict any use of the information to criminally investigate or prosecute any alcohol or drug abuse patient.[facility] HospitalIn the event this information is protected by the Federal Confidentiality of Alcohol and Drug Abuse Patient Records regulations: The Federal rules restrict any use of the information to criminally investigate or prosecute any alcohol or drug abuse patient.[facility] Hospital[facility] the event this information is protected by the Federal Confidentiality of Alcohol and Drug Abuse Patient Records regulations: The Federal rules restrict any use of the information to criminally investigate or prosecute any alcohol or drug abuse patient.[facility] HospitalIn the event this information is protected by the Federal Confidentiality of Alcohol and Drug Abuse Patient Records regulations: The Federal rules restrict any use of the information to criminally investigate or prosecute any alcohol or drug abuse patient.[facility] HospitalIn the event this information is protected by the Federal Confidentiality of Alcohol and Drug Abuse Patient Records regulations: The Federal rules restrict any use of the information to criminally investigate or prosecute any alcohol or drug abuse patient.[facility] HospitalIn the event this information is protected by the Federal Confidentiality of Alcohol and Drug Abuse Patient Records regulations: The Federal rules restrict any use of the information to criminally investigate or prosecute any alcohol or drug abuse patient.[facility] HospitalIn the event this information is protected by the Federal Confidentiality of Alcohol and Drug Abuse Patient Records regulations: The Federal rules restrict any use of the information to criminally investigate or prosecute any alcohol or drug abuse patient.[facility] HospitalIn the event this information is protected by the Federal Confidentiality of Alcohol and Drug Abuse Patient Records regulations: The Federal rules restrict any use of the information to criminally investigate or prosecute any alcohol or drug abuse patient.[facility] HospitalIn the event this information is protected by the Federal Confidentiality of Alcohol and Drug Abuse Patient Records regulations: The Federal rules restrict any use of the information to criminally investigate or prosecute any alcohol or drug abuse patient.[facility] HospitalIn the event this information is protected by the Federal Confidentiality of Alcohol and Drug Abuse Patient Records regulations: The Federal rules restrict any use of the information to criminally investigate or prosecute any alcohol or drug abuse patient.[facility] HospitalIn the event this information is protected by the Federal Confidentiality of Alcohol and Drug Abuse Patient Records regulations: The Federal rules restrict any use of the information to criminally investigate or prosecute any alcohol or drug abuse patient.[facility] HospitalIn the event this information is protected by the Federal Confidentiality of Alcohol and Drug Abuse Patient Records regulations: The Federal rules restrict any use of the information to criminally investigate or prosecute any alcohol or drug abuse patient.[facility] HospitalIn the event this information is protected by the Federal Confidentiality of Alcohol and Drug Abuse Patient Records regulations: The Federal rules restrict any use of the information to criminally investigate or prosecute any alcohol or drug abuse patient.[facility] HospitalIn the event this information is protected by the Federal Confidentiality of Alcohol and Drug Abuse Patient Records regulations: The Federal rules restrict any use of the information to criminally investigate or prosecute any alcohol or drug abuse patient.[facility] HospitalIn the event this information is protected by the Federal Confidentiality of Alcohol and Drug Abuse Patient Records regulations: The Federal rules restrict any use of the information to criminally investigate or prosecute any alcohol or drug abuse patient.[facility] HospitalIn the event this information is protected by the Federal Confidentiality of Alcohol and Drug Abuse Patient Records regulations: The Federal rules restrict any use of the information to criminally investigate or prosecute any alcohol or drug abuse patient.[facility] HospitalIn the event this information is protected by the Federal Confidentiality of Alcohol and Drug Abuse Patient Records regulations: The Federal rules restrict any use of the information to criminally investigate or prosecute any alcohol or drug abuse patient.[facility] HospitalIn the event this information is protected by the Federal Confidentiality of Alcohol and Drug Abuse Patient Records regulations: The Federal rules restrict any use of the information to criminally investigate or prosecute any alcohol or drug abuse patient.[facility] Reason for Visit (unrecogniz ed section and content) Reason Comments Outside Lab Results [facility] Reason Comments Outside Lab Results [facility] Reason Comments Outside Lab [facility] Reason Comments Outside Lab Results [facility] Reason Comments Refill Request Reason Onset Date Comments Refill Request 12/25/2023 Reason Comments Results [facility] Reason Comments Follow Up Reason Comments Yearly Exam Care Teams (unrecognized sec tion and content) Team Status: Active Member Role Status Dates Dr. Wilfrido Medrano DO Family Provider Active Dr. Cam Calero MD Primary Care Provider Activ e Team Status: Inactive Member Role Status Dates Dr. Cam Calero MD Primary Care Provider Activ e Meng Ngo INSURANCE BILLER, INSURANCE BILLER-C Attending Provider Active Team Status: Active Member Role Status Dates Dr. Wilfrido Medrano DO Family Provider Active Ewelina Gómez DO Primary Care Provider Active Team Status: Inactive Member Role Status Dates Dr. Cam Calero MD Primary Care Provider Activ e Meng Ngo INSURANCE BILLER, INSURANCE BILLER-C Attending Provider, Referring Provider Active Team Status: Active Member Role Status Dates Ewelina Gómez DO Primary Care Provi patrica, Referring Provider, Other Provider Active Dr. Dallin Jhaveri MD Attending Provider Active Team Status: Inactive Member Role Status Dates Ewelina Freeman Rico , DO Primary Care Provi patrica, Attending Provider, Referring Provider Active Team Status: Inactive Member Role Status Dates Ewelina Gómez , DO Primary Care Provider Active Dr. Leonidas Stark MD Attending Provider Active Team Status: Inactive Member Role Status Dates Ewelinaramo Gómez , DO Primary Care Provider Active Dr. Leonidas Stark MD Attending Provider, Referr ing Provider Active Team Status: Active Member Role Status Dates No Primary Care Physician Primary Care Provider Active Team Status: Inactive Member Role Status Dates No Primary Care Physician Primary Care Provider Active Start: December 25, 2024 End: December 25, 2024 Dr. Flor Eason MD Attending Provider Active Start: December 25, 2024 End: December 25, 2024 Dr. Flor Eason MD Referring Provider Active Start: December 25, 2024 End: December 25, 2024 Goals (unrecognized section and content) Goals may be documented in a n alternate sectionGoals may be documented in an alternate sectionGoals may be documented in an alternate sectionGoals may be documented in an alternate sectionGoals may be documented in an alternate sectionGoals may be documented in an alternate sectionGoals may be documented in an alternate section FOR RECORDS PERTAINING TO PATIENTS WHO ARE [...] BE BASED ON THE PRIMARY CLINICAL RECORDS. [employer] [facility]. provides no warranty or guarantee of the accuracy or completeness of information in this document.
== END | disposition home or self-care (01) ==
LOC: LAB 11:02
PROVIDERS: Referring Provider Internal Medicine Endocrinology, Diabetes & Metabolism; Visit Provider Internal Medicine Endocrinology, Diabetes & Metabolism
DX: E03.9 Hypothyroidism, unspecified (principal)
CPT/HCPCS: 36415; 84439; 84443